=== PATIENT | female | born 1965 | race Caucasian/White ===

== ENCOUNTER 2020-08-14 11:00 | Outpatient (RCR) | payer OTHER, SELFPAY ==
--- NOTE | 2020-08-14 12:40 | MHC.PT.DC ---
[facility] [place] Office [place] Office [place] Office [address] [place] [address] Dr Montse Valencia [address] [phone] F: [phone] F: [phone] F: [phone] F: [phone] Physical Therapy Discharge Report Diagnosis: BACK PAIN AND KNEE PAIN Date of Surgery: Date of Evaluation: 06/19/20 Date of Discharge: 08/14/20 Treatments to Date: 11 Cancellations to Date: 0 No Shows to Date: 2 Discharge Status: Achieved Goals Independent with HEP Discharge Summary: 08/14/20 GOOD PERF EXS/STRETCHES, GIVEN INFO FOR [employer] (IS GOING TO TRY TO EX 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 HAS MET PT GOALS (REVIEWED 2 SESSIONS AGO) EVAL:Pt IS 54 YO F REFERRED TO PT FROM RHEUMATOLOGY WITH BACK PAIN AT MULTIPLE SITES. Pt REPORTS SHE DOES HAVE BACK PAIN, BUT KNEE PAIN IS WORSE. PRESENTS WITH LIMITED KNEE FLEX B, TIGHT HS R, DECREASED CORE AND LE STRENGTH. Pt WITH SOME PAT MALALIGNMENT AND SUBJECTIVE SXS OF PATELLOFEMORAL SYNDROME. SHOULD BENEFIT FROM PT TO ADDRESS KNEE ISSUES WITH TAPING, LE STRENGTHENING, AND ADDRESS LB SXS WITH ST WORK, CORE STENING.RENGTH Please sign and return to therapist. Thank you for your referral.
== END 2020-12-02 11:59 | disposition other institution (70) ==
LOC: HO.PT 11:00
PROVIDERS: Visit Provider Student in an Organized Health Care Education/Training Program
DX: M54.9 Dorsalgia, unspecified (principal); M25.569 Pain in unspecified knee
CPT/HCPCS: 97110

== ENCOUNTER → 2020-09-29 10:10 | Outpatient (BNVA) | payer OTHER, SELFPAY | PROVIDERS: PCP Internal Medicine; Referring Provider Internal Medicine; Visit Provider Student in an Organized Health Care Education/Training Program | DX: M35.01 Sjogren syndrome with keratoconjunctivitis (principal); R76.8 Other specified abnormal immunological findings in serum; M17.0 Bilateral primary osteoarthritis of knee | CPT/HCPCS: 99212 ==

== ENCOUNTER 2021-02-16 11:05 | Outpatient (REF) | payer OTHER, SELFPAY ==
[2021-02-16 12:13] LABS: Glucose Urine UA NEG (NEG); Leukocyte Esterase Urine NEG (NEG); Nitrite Urine NEG (NEG); Specific Gravity - Urine <= 1.005 (1.005-1.025); Urine Blood NEG (NEG); Urine Ketones NEG (NEG); Urine Protein NEG (NEG-TRACE)
[2021-02-16 12:15] LABS: Appearance Urine CLEAR; Color Urine STRAW
[2021-02-16 12:25] LABS: Bacteria Urine 1+ /LPF; RBC Urine 0 /HPF (0); Squamous Epithelial Cell Urine 1+ /LPF; WBC Urine 0-2 /HPF (0-4)
[2021-02-17 14:22] LABS: Anti DNA DS Antibody 1 IU/mL
[2021-02-17 15:11] LABS: Complement C3 139 mg/dL (83-193)
== END 2021-02-16 11:06 | disposition home or self-care (01) ==
LOC: HO.LAB 11:05
PROVIDERS: PCP Internal Medicine; Visit Provider Student in an Organized Health Care Education/Training Program
DX: M35.01 Sjogren syndrome with keratoconjunctivitis (principal); M62.830 Muscle spasm of back; M67.911 Unspecified disorder of synovium and tendon, right shoulder
CPT/HCPCS: 36415; 81001; 86160; 86225; 99212

== ENCOUNTER 2021-04-14 21:21 | Emergency (ER) | payer OTHER, SELFPAY ==
--- NOTE | ~2021-04-14 | XR_ITS ---
EXAMINATION: XR LUMBOSACRAL SPINE CLINICAL INFORMATION: Pain COMPARISON: None TECHNIQUE: Three views of the lumbosacral spine. FINDINGS: There is a mildly exaggerated lumbar lordosis. There is some mild disc space narrowing L1-L2 with some endplate changes. The disc spaces are otherwise well preserved. No fractures or bony destructive lesions seen. Surgical clips noted in the gallbladder fossa. Large amount of stool is present throughout the colon. XR/XR lumbar spine 2-3V IMPRESSION: Minimal degenerative changes in the lumbosacral spine as described above.
[2021-04-14 22:35] VITALS: BP 142/85; PULSE 80; RESP 16; TEMP 36.7; O2SAT 84; BMI 34.9
--- NOTE | 2021-04-14 22:49 | ED.BACK ---
HPI - Back Pain/Injury General Chief Complaint: Back Pain/Injury Stated Complaint: low back pain Time Seen by Provider: 04/14/21 22:49 Source: patient Mode of arrival: ambulatory Limitations: no limitations History of Present Illness HPI Narrative: lumbar back pain with radiation down to the left leg, denies injury MD elicited complaint: back pain Pertinent past history: prior back pain Onset (ago): day(s) (3) Timing: constant Severity: moderate Quality: burning and sharp Location: lumbar spine Radiation: left leg below the knee Exacerbating factors: sitting upright Relieving factors: none Associated symptoms: denies other symptoms Related Data Home Medications Medication Instructions Recorded Confirmed acetaminophen 650 mg 1,300 mg PO Q8H 09/29/20 tablet,extended release levothyroxine 175 mcg tablet 175 mcg PO DAILY 09/29/20 Previous Rx's Medication Instructions Recorded tizanidine 2 mg tablet 2 mg PO BEDTIME PRN #10 tab 02/16/21 diclofenac sodium 1 % topical gel 4 g TOPICAL DAILY PRN #100 g 02/25/21 cyclobenzaprine 10 mg PO TID #10 tab 04/14/21 naproxen [Naprosyn] 500 mg PO BID #20 tab 04/14/21 Allergies Allergy/AdvReac Type Severity Reaction Status Date / Time No Known Allergies Allergy Verified 02/16/21 11:12 Review of Systems Constitutional: Constitutional: Reports no additional constitutional complaints Eyes: Eyes: Reports no additional eye complaints ENT: Denies dizziness Cardiovascular: Cardiovascular: Reports no additional cardiovascular complaints Respiratory: Respiratory: Reports as per HPI Gastrointestinal: Gastrointestinal: Reports no additional gastrointestinal complaints Genitourinary: Genitourinary: Reports no additional female genitourinary complaints Musculoskeletal: Musculoskeletal: Reports no additional musculoskeletal complaints Integumentary/Breasts: Skin/Breast: Denies rash Neurologic: Reports system reviewed and no additional complaints, except as documented, Denies dizziness and Denies Sensory deficit (Neuro) Psychiatric: Psychiatric: Denies anxiety PMFSH Past Medical History Medical History JERRI positive Primary osteoarthritis of knees, bilateral Sjogrens syndrome Surgical History Hx of cholecystectomy Hx of hysterectomy Hx of tonsillectomy Hx of tubal ligation Family History Family History Mother Osteoarthritis Brother HTN (hypertension) Father Sepsis Social History Social History Alcohol intake: never Advance Directives: No Advance Directives Information Provided: Yes Patient : No Physical Exam Vital Signs: Vital Signs: Last Vital Signs Temp 98.0 F 04/14/21 22:35 Pulse 80 04/14/21 22:35 Resp 16 04/14/21 22:35 BP 142/85 H 04/14/21 22:35 Pulse Ox 84 L 04/14/21 22:35 Body Mass Index 34.9 Const: Other: patient in pain out of proportion to physical findings Nutritional Appearance: average body habitus Orientation/consciousness: oriented to person and patient oriented x3 Limitations: no limitations HENMT: Head: Yes normal to inspection Ears: external ears normal General nose exam: Normal external nose present Mouth: Normal oral and palatal mucosa present and oropharynx normal Throat: Yes posterior oropharynx normal Eyes: General: appearance normal, both eyes and all related structures Neck: Other: supple Neck: Yes normal visual inspection Chest: Chest palpation & inspection: normal inspection of the chest Resp: Auscultation: clear to auscultation bilaterally Cardio: Jugular venous distension: no JVD Rate: regular rate Rhythm: regular rhythm Heart sounds: S1 normal heart sound present and S2 normal heart sound present GI: Inspection: Yes normal to inspection Palpation (GI): Soft to palpation, nontender and No hepatosplenomegaly present Auscultation: normal bowel sounds Back/Spine/Pelvis: Other: bilateral SI joint tenderness with bilateral sciatica Skin: General skin exam: no rashes or lesions noted Neuro: General: oriented to person and patient oriented x3 Cranial nerves: Yes CN's II-XII intact bilaterally Motor exam (neuro): 5/5 motor strength present throughout Sensory Exam: No Sensory deficit (Neuro) Extrem: General: Yes normal to inspection Psych: Appearance: grossly normal Course Course Course Narrative: Patient with SI joint and sciatic pain, xray with degenerative disease. Will dc patient on NSAIDS and flexeril MDM - Back Pain/Injury Lab Data Labs: Lab Results 04/14/21 Range/Units 23:02 Urine Color YELLOW Urine Appearance CLEAR Urine pH 6.0 (5.0-8.0) Ur Specific [place] 1.020 (1.005-1.025) Urine Protein NEG (NEG-TRACE) MG/DL Urine Glucose (UA) NEG (NEG) MG/DL Urine Ketones NEG (NEG) MG/DL Urine Blood NEG (NEG) Urine Nitrite NEG (NEG) Ur Leukocyte Esterase NEG (NEG) Discharge Plan Discharge Clinical Impression: Lumbar radiculopathy Sciatica Qualifiers: Laterality: bilateral Qualified Code(s): M54.31 - Sciatica, right side Patient Disposition: Home, Self-Care Instructions: Sciatica (ED), Lumbar Radiculopathy (ED) Prescriptions: New cyclobenzaprine 10 mg tablet 10 mg PO TID Qty: 10 RF: 0 naproxen [Naprosyn] 500 mg tablet 500 mg PO BID Qty: 20 RF: 0 No Action diclofenac sodium [Voltaren] 1 % gel 4 g topical DAILY PRN (Reason: pain) Qty: 100 RF: 3 levothyroxine 175 mcg tablet 175 mcg PO DAILY RF: 0 acetaminophen [Tylenol Arthritis Pain] 650 mg tablet extended release 1,300 mg PO Q8H RF: 0 tizanidine 2 mg tablet 2 mg PO BEDTIME PRN (Reason: muscle spasticity) Qty: 10 RF: 0 Referrals: Leidy Weeks MD [Primary Care Provider] - 1 week
[2021-04-14 23:10] LABS: Glucose Urine UA NEG (NEG); Leukocyte Esterase Urine NEG (NEG); Nitrite Urine NEG (NEG); Urine Blood NEG (NEG); Urine Ketones NEG (NEG); Urine Protein NEG (NEG-TRACE)
[2021-04-14 23:12] LABS: Appearance Urine CLEAR; Color Urine YELLOW
[2021-04-14] MEDS: Ketorolac Tromethamine 60 MG/2 ML VIAL IM (23:55)
== END 2021-04-15 00:19 | disposition home or self-care (01) ==
PROVIDERS: Emergency Provider Emergency Medicine; PCP Internal Medicine
DX: M54.16 Radiculopathy, lumbar region (principal); M54.31 Sciatica, right side
CPT/HCPCS: 72100; 81003; 96372; 99284; J1885

== ENCOUNTER 2021-04-22 14:00 | Outpatient (RCR) | payer OTHER, SELFPAY ==
--- NOTE | 2021-03-26 15:03 | MHC.PT.EP ---
[facility] [place] Office [place] Office [place] Office [address] Montse Valencia [address] [phone] F: [phone] F: [phone] F: [phone] F: [phone] Physical Therapy Plan of Care Date of Evaluation: Date of Surgery: N/A Diagnosis: tendinopathy of the right rotator cuff Assessment: pt's signs and symptoms appear to be related to posture and poor compensatory strategies. It seems as though she is experiencing impingement syndrome but will monitor neurological symptoms and treat accordingly. pt presents to physical therapy with pain, decreased range of motion, decreased strength, impaired functional mobility, impaired postural awareness, and gait deviations. pt is a good candidate for skilled PT due to age, potential remediation of impairments, typical disease/condition progression and prognosis, comorbidities, and motivation. pt would benefit from tailored strengthening and stretching exercise program, functional training, postural re-training, neuromuscular re-education, modalities as needed for pain, equipment safety demonstration. Frequency and Duration: The patient will be seen 1x/wk for 5 wks Short Term Goals: pt will be I w/ HEP to promote self-management of condition. pt will demo proper scap setting prior to active shoulder elevation to reduce compensatory strategies and pain w/ functional activities. Steward/Stewardess Night Goals: pt will report <1/10 R shoulder pain w/ upper body dressing to promote return to PLOF. pt will report a statistically significant improvement in self-reported outcome measure, SPADI, to promote return to PLOF. Treatment Plan: Modalities to reduce pain, spasms and effusion. Manual therapy to restore motion and function. Therapeutic exercise to improve strength and flexibility. Neuromuscular re-education for posture and balance. Therapeutic activities to return to functional activities of daily living. Electronically signed by: Kayce Romero PT, DPT Please sign and return to therapist. Thank you for your referral.
--- NOTE | 2021-04-22 15:34 | MHC.PT.DC ---
[facility] [place] Office [place] Office [place] Office [address] Montse Valencia 140 [facility] [phone] F: [phone] F: [phone] F: [phone] F: [phone] Physical Therapy Discharge Report Diagnosis: tendinopathy of the right rotator cuff Date of Surgery: N/A Date of Evaluation: 03/26/21 Date of Discharge: 04/22/21 Treatments to Date: 2 Cancellations to Date: 2 No Shows to Date: 1 Discharge Status: Improved Function Independent with HEP Discharge Summary: The patient feels her shoulder is better and she can manage her symptoms with a stretching and strengthening program at home. She was taken through a cervical stretching, postural strengthening, and shoulder active assisted range of motion program with little to no increase in pain. She demonstrated improved periscapular recruitment with active elevation. She was given an updated HEP handout. She is discharged from this physical therapy plan of care at this time. Electronically signed by: Kayce Romero PT, DPT Please sign and return to therapist. Thank you for your referral.
== END 2021-04-22 15:35 | disposition other institution (70) ==
LOC: HO.PT 14:00
PROVIDERS: Visit Provider Student in an Organized Health Care Education/Training Program
DX: M67.911 Unspecified disorder of synovium and tendon, right shoulder (principal)
CPT/HCPCS: 97110; 97112; 97140; 97161

== ENCOUNTER → 2021-05-05 09:02 | Outpatient (BNVA) | payer OTHER, SELFPAY | PROVIDERS: PCP Internal Medicine; Visit Provider Student in an Organized Health Care Education/Training Program | DX: M35.01 Sjogren syndrome with keratoconjunctivitis (principal); M62.830 Muscle spasm of back; M67.911 Unspecified disorder of synovium and tendon, right shoulder; M17.0 Bilateral primary osteoarthritis of knee; R76.8 Other specified abnormal immunological findings in serum | CPT/HCPCS: 99212 ==

== ENCOUNTER 2021-05-25 10:00 | Outpatient (RCR) | payer OTHER, SELFPAY ==
--- NOTE | 2021-05-05 10:54 | MHC.PT.EP ---
[facility] [place] Office [place] Office [place] Office [address] Montse Valencia [address] [phone] F: [phone] F: [phone] F: [phone] F: [phone] Physical Therapy Plan of Care Date of Evaluation: Date of Surgery: N/A Diagnosis: muscle spasm of back Assessment: pt's signs and symptoms consistent w/ thoracolumbar paraspinal spasm. pt presents to physical therapy with pain, decreased range of motion, decreased strength, impaired functional mobility, impaired postural awareness, and gait deviations. pt is a good candidate for skilled PT due to age, potential remediation of impairments, typical disease/condition progression and prognosis, comorbidities, and motivation. pt would benefit from tailored strengthening and stretching exercise program, functional training, gait training, postural re-training, neuromuscular re-education, modalities as needed for pain, equipment safety demonstration. Frequency and Duration: The patient will be seen 2x/wk for 4 wks Short Term Goals: pt will be I w/ HEP to promote self-management of condition. pt will demo proper sitting posture w/ lumbar roll to promote neutral spine. 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 pt will improve lumbar flexion by 50% to improve ability to don and doff socks/shoes. Treatment Plan: Modalities to reduce pain, spasms and effusion. Manual therapy to restore motion and function. Therapeutic exercise to improve strength and flexibility. Neuromuscular re-education for posture and balance. Therapeutic activities to return to functional activities of daily living. Electronically signed by: Kayce Romero PT, DPT Please sign and return to therapist. Thank you for your referral.
[2021-05-05 12:06] LABS: MANUAL DIFF FLAG NO
[2021-05-05 12:14] LABS: Basophils Percent Auto 0.3 % (0-2); Eosinophils Absolute Auto 0.1 X10*3/uL (0.0-0.4); Eosinophils Percent Auto 2.2 % (0-4); Hematocrit 42.1 % (37-47); Hemoglobin 13.9 g/dl (12.0-16.0); Imm Gran Abs Auto 0.02 X10*3/uL (0.00-0.03); Imm Gran Pct Auto 0.3 % (0.0-0.4); Lymphocytes Absolute Auto 1.5 X10*3/uL (1.2-4.9); Lymphocytes Percent Auto 26.1 % (20-40); Mean Corpuscular Hemoglobin 29.4 pg (27.0-33.0); Mean Corpuscular Volume 89.2 fL (80-98); Mean Platelet Volume 11.9 fL (9.4-12.3); Monocytes Absolute Auto 0.6 X10*3/uL (0.1-1.2); Monocytes Percent Auto 9.9 % (2-11); Neutrophils Absolute Auto 3.6 X10*3/uL (2.0-8.3); Neutrophils Percent Auto 61.2 % (45-73); Platelet Count 326 X10*3/uL (160-400); Red Blood Count 4.72 X10*6/uL (4.20-5.50); Red Cell Distribution Width 12.6 % (11.0-16.0); White Blood Count 5.9 X10*3/uL (4.8-10.8)
[2021-05-05 13:03] LABS: Alanine Aminotransferase 23 U/L (0-31); Albumin Level 4.3 g/dL (3.5-5.0); Alkaline Phosphatase 94 U/L (39-117); Anion Gap 11 (12-20); Aspartate Amino Transferase 19 U/L (5-31); Bilirubin Total 0.4 mg/dL (0.0-1.0); Blood Urea Nitrogen 9 mg/dL (9-16); C Reactive Protein 1.06 mg/dL (< or = 0.50); Calcium 10.1 mg/dL (8.4-10.2); Carbon Dioxide 29 mmol/L (22-29); Chloride 105 mmol/L (96-108); Estimated Glomerular Filt Rate > 60; Glucose Random 80 mg/dL (60-115); Potassium 4.6 mmol/L (3.3-5.1); Sodium 140 mmol/L (135-145); Total Protein 7.2 g/dL (6.5-8.0)
[2021-05-06 12:46] LABS: Prot Elec - Albumin 4.2 g/dL (3.8-4.8); Prot Elec - Alpha1 0.3 g/dL (0.2-0.3); Prot Elec - Alpha2 0.8 g/dL (0.5-0.9); Prot Elec - Beta 1 0.5 g/dL (0.4-0.6); Prot Elec - Beta 2 0.3 g/dL (0.2-0.5)
[2021-05-06 16:52] LABS: IgA 227 mg/dL (47-310); IgG 1151 mg/dL (600-1640); IgM 168 mg/dL (50-300)
[2021-05-07 14:51] LABS: Cyclic Citrullinated Peptide <16 UNITS
--- NOTE | 2021-05-25 13:51 | MHC.PT.DC ---
[facility] [place] Office [place] Office [place] Office [address] Montse Valencia 140 [facility] [phone] F: [phone] F: [phone] F: [phone] F: [phone] Physical Therapy Discharge Report Diagnosis: muscle spasm of back Date of Surgery: N/A Date of Evaluation: 05/05/21 Date of Discharge: 05/25/21 Treatments to Date: 3 Cancellations to Date: 0 No Shows to Date: 2 Discharge Status: Improved Function Independent with HEP Patient Elected to Stop Discharge Summary: The patient reported she has been doing her exercises at home and her back has been feeling very good. She has been having little to no pain in her back. She would like today to be her last visit. She has been independent with her home exercise program which has been helping significantly. She was advised on continuing with her home exercise program and a gentle progressive walking program to maintain her gains and promote functional strength and endurance. She is discharged from this physical therapy plan of care per her request. Electronically signed by: Kayce Romero PT, DPT Please sign and return to therapist. Thank you for your referral.
== END 2021-05-25 13:52 | disposition home or self-care (01) ==
LOC: HO.PT 10:00
PROVIDERS: Visit Provider Student in an Organized Health Care Education/Training Program
DX: M62.830 Muscle spasm of back (principal)
CPT/HCPCS: 36415; 80053; 82784; 84155; 84165; 85025; 86140; 86200; 86334; 97110; 97112; 97140; 97150; 97161; 97530

== ENCOUNTER 2021-10-18 14:06 | Outpatient (REF) | payer OTHER, SELFPAY ==
[2021-10-18 15:15] LABS: COVID-19 Test Negative (Negative); IDNOW Serial# 16C4AD1C
== END 2021-10-18 14:07 | disposition home or self-care (01) ==
LOC: HO.LAB 14:06
PROVIDERS: Visit Provider Internal Medicine
DX: Z20.822 Contact with and (suspected) exposure to COVID-19 (principal)
CPT/HCPCS: 36415; 87635; C9803

== ENCOUNTER 2021-10-25 14:01 | Outpatient (REF) | payer OTHER, SELFPAY ==
[2021-10-25 16:12] LABS: COVID-19 Test Negative (Negative)
== END 2021-10-25 14:02 | disposition home or self-care (01) ==
LOC: HO.LAB 14:01
PROVIDERS: Visit Provider Internal Medicine
DX: Z20.822 Contact with and (suspected) exposure to COVID-19 (principal)
CPT/HCPCS: 36415; 87635; C9803

== ENCOUNTER 2021-11-06 10:48 | Emergency (ER) | payer OTHER, SELFPAY ==
[2021-11-06 11:12] VITALS: PULSE 76; RESP 18; TEMP 36.8; O2SAT 98; BMI 35.0
--- NOTE | 2021-11-06 11:55 | ED.BACK ---
HPI - Back Pain/Injury General Chief Complaint: Back Pain/Injury Stated Complaint: severe back pain Time Seen by Provider: 11/06/21 11:55 History of Present Illness HPI Narrative: Patient complains of back pain after lifting a child at home on the right mid back with no radiation, no numbness weakness or tingling no changes to bowel or bladder no other injury Related Data Home Medications Medication Instructions Recorded Confirmed acetaminophen 650 mg 1,300 mg PO Q8H 09/29/20 05/05/21 tablet,extended release (Tylenol Arthritis Pain) levothyroxine 175 mcg tablet 175 mcg PO DAILY 09/29/20 05/05/21 Previous Rx's Medication Instructions Recorded tizanidine 2 mg tablet 2 mg PO BEDTIME PRN #10 tab 02/16/21 diclofenac sodium 1 % topical gel 4 g TOPICAL DAILY PRN #100 g 02/25/21 (Voltaren) cyclobenzaprine 10 mg tablet 10 mg PO TID #10 tab 04/14/21 naproxen 500 mg tablet (Naprosyn) 500 mg PO BID #20 tab 04/14/21 acetaminophen 500 mg tablet 1,000 mg PO QID PRN #30 tab 11/06/21 cyclobenzaprine 5 mg tablet 5 mg PO TID PRN #14 tab 11/06/21 ibuprofen 600 mg tablet 600 mg PO Q6H PRN #20 tab 11/06/21 lidocaine 5 % topical patch 1 patch TOPICAL DAILY #15 ea 11/06/21 Allergies Allergy/AdvReac Type Severity Reaction Status Date / Time No Known Allergies Allergy Verified 11/06/21 11:11 Review of Systems Review of Systems: Positive for back pain Negative no fever no chills no dizziness no weakness no headache no neck pain no chest pain no shortness of breath no abdominal pain no nausea or vomiting no dysuria no incontinence no changes to bowel or bladder no weakness no numbness no tingling no radiation of pain Yes all other systems are reviewed and are negative PMFSH Past Medical History Source: nursing notes reviewed Medical History JERRI positive Primary osteoarthritis of knees, bilateral Sjogrens syndrome Surgical History Hx of cholecystectomy Hx of hysterectomy Hx of tonsillectomy Hx of tubal ligation Family History Family History Mother Osteoarthritis Brother HTN (hypertension) Father Sepsis Social History Social History (Updated 05/05/21 @ 09:13 by Lester Flynn LPN) Alcohol intake: never Patient Tobacco Use Status: Never used Tobacco e-Cigarette/Vaping Use: Never Used Use of substances other than those prescribed or required for medical reasons: No Advance Directives: No Advance Directives Information Provided: Yes Physical Exam Vital Signs: Vital Signs: Last Vital Signs Temp 98.3 F 11/06/21 11:12 Pulse 76 11/06/21 11:12 Resp 18 11/06/21 11:12 Pulse Ox 98 11/06/21 11:12 BMI result Body Mass Index 35.0 General appearance no acute distress Head normocephalic atraumatic Neck is supple Respiratory no distress Abdomen soft nontender The back had lower lumbar paraspinal tenderness no focal bony tenderness no CVA tenderness, pain easily reproduced with movement, skin was normal Extremities full range of motion x4 Neuro no focal motor or sensory deficits Course Course Course Narrative: Well-appearing patient without neurologic deficit, no changes to bowel or bladder is treated with analgesics and muscle relaxer and will follow with primary doctor Discharge Plan Discharge Clinical Impression: Low back strain Patient Disposition: Home, Self-Care Additional Instructions: You likely strained muscles in her back This usually resolves on its own after several days You could use pain medicine and muscle relaxers if helpful Follow with her doctor Return any time if worse Prescriptions: New acetaminophen 500 mg tablet 1,000 mg PO QID PRN (Reason: pain) Qty: 30 RF: 0 cyclobenzaprine 5 mg tablet 5 mg PO TID PRN (Reason: muscle spasm) Qty: 14 RF: 0 lidocaine 5 % adhesive patch,medicated 1 patch topical DAILY Qty: 15 RF: 0 ibuprofen 600 mg tablet 600 mg PO Q6H PRN (Reason: pain) Qty: 20 RF: 0 No Action diclofenac sodium [Voltaren] 1 % gel 4 g topical DAILY PRN (Reason: pain) Qty: 100 RF: 3 cyclobenzaprine 10 mg tablet 10 mg PO TID Qty: 10 RF: 0 naproxen [Naprosyn] 500 mg tablet 500 mg PO BID Qty: 20 RF: 0 levothyroxine 175 mcg tablet 175 mcg PO DAILY RF: 0 acetaminophen [Tylenol Arthritis Pain] 650 mg tablet extended release 1,300 mg PO Q8H RF: 0 tizanidine 2 mg tablet 2 mg PO BEDTIME PRN (Reason: muscle spasticity) Qty: 10 RF: 0 Interventions: ED Discharge Assessment Last Done: 11/06/21 12:07 Discharge Date/Time: 11/06/21 12:08
== END 2021-11-06 12:08 | disposition home or self-care (01) ==
PROVIDERS: Emergency Provider Emergency Medicine; PCP Internal Medicine
DX: M54.50 Low back pain, unspecified (principal); Z79.899 Other long term (current) drug therapy
CPT/HCPCS: 99283; 99284

== ENCOUNTER 2021-11-09 11:51 | Outpatient (REF) | payer OTHER, SELFPAY ==
[2021-11-09 15:14] LABS: Binax Internal Control QC Valid; Binax Lot number: 9864; Binax Now Covid-19 Ag Negative (Negative)
== END 2021-11-09 11:52 | disposition home or self-care (01) ==
LOC: HO.LAB 11:51
PROVIDERS: Visit Provider Internal Medicine
DX: Z20.822 Contact with and (suspected) exposure to COVID-19 (principal)
CPT/HCPCS: 36415

== ENCOUNTER → 2022-01-20 10:54 | Outpatient (BNVA) | payer SELFPAY | PROVIDERS: PCP Internal Medicine; Visit Provider Internal Medicine | DX: Z02.79 Encounter for issue of other medical certificate (principal) ==

== ENCOUNTER 2022-06-02 10:33 | Emergency (ER) | payer OTHER, SELFPAY ==
--- NOTE | ~2022-06-02 | XR_ITS ---
EXAMINATION: XR CHEST CLINICAL INFORMATION: Chest pain with cough COMPARISON: November 27, 2016 TECHNIQUE: Frontal view of the chest was obtained. FINDINGS: No significant abnormality is noted involving the heart, lungs, mediastinum, bony thorax or soft tissues. XR/XR chest 1V IMPRESSION: No acute disease.
[2022-06-02 10:39] VITALS: BP 138/79; PULSE 71; RESP 16; TEMP 36.7; O2SAT 99; BMI 35.2
--- NOTE | 2022-06-02 10:44 | ECG_ITS ---
Test Reason : CP Blood Pressure : / mmHG Vent. Rate : 071 BPM Atrial Rate : 071 BPM P-R Int : 162 ms QRS Dur : 076 ms QT Int : 366 ms P-R-T Axes : 048 -01 019 degrees QTc Int : 397 ms Normal sinus rhythm Low voltage QRS Cannot rule out Anterior infarct , age undetermined Abnormal ECG No significant changes when compared with the previous EKG of 22 aug 2013 Referred By: Generic ED Physician Electronically Signed By:SHARA MOISE
[2022-06-02 11:32] VITALS: BP 139/78; PULSE 75; RESP 18; TEMP 36.7; O2SAT 100
--- NOTE | 2022-06-02 11:43 | ED.CHESTPAIN ---
HPI - Chest Pain General Chief Complaint: Chest Pain Stated Complaint: chest pain Time Seen by Provider: 06/02/22 11:29 Source: patient Mode of arrival: ambulatory History of Present Illness HPI narrative: 56-year-old female with a past medical history of JERRI positive, osteoarthritis, Sjogren syndrome, presenting to the ED complaining of intermittent chest pain since last night worse with coughing, also with productive cough with headache since this morning. Reports history of migraines, this headache is similar to prior migraines, not maximal in onset. Denies fever, ear pain, SOB, abdominal pain, nausea/vomiting, pedal edema, sick contacts, recent travel MD complaint: chest pain Related Data Home Medications Medication Instructions Recorded Confirmed acetaminophen 650 mg 1,300 mg PO Q8H 09/29/20 05/05/21 tablet,extended release (Tylenol Arthritis Pain) levothyroxine 175 mcg tablet 175 mcg PO DAILY 09/29/20 05/05/21 Previous Rx's Medication Instructions Recorded tizanidine 2 mg tablet 2 mg PO BEDTIME PRN muscle 02/16/21 spasticity #10 tabs diclofenac sodium 1 % topical gel 4 g topical DAILY PRN pain #100 02/25/21 (Voltaren) grams cyclobenzaprine 10 mg tablet 10 mg PO TID #10 tabs 04/14/21 naproxen 500 mg tablet (Naprosyn) 500 mg PO BID #20 tabs 04/14/21 acetaminophen 500 mg tablet 1,000 mg PO QID PRN pain #30 tabs 11/06/21 cyclobenzaprine 5 mg tablet 5 mg PO TID PRN muscle spasm #14 11/06/21 tabs ibuprofen 600 mg tablet 600 mg PO Q6H PRN pain #20 tabs 11/06/21 lidocaine 5 % topical patch 1 patch topical DAILY Back pain 11/06/21 #15 ea benzonatate 100 mg capsule 100 mg PO TID PRN cough #14 caps 06/02/22 fluticasone propionate 50 2 spray intranasal DAILY #16 grams 06/02/22 mcg/actuation nasal spray,suspension (Flonase Allergy Relief) Allergies Allergy/AdvReac Type Severity Reaction Status Date / Time No Known Allergies Allergy Verified 06/02/22 10:39 Review of Systems Review of Systems: Constitutional: No Fever, No Chills, No Fatigue, No Malaise ENT/Mouth: No Hearing loss, No Ear Pain, No Nasal Congestion, No Sinus Pain, No Hoarseness, + sore throat, No Rhinorrhea, No Swallowing Difficulty Eyes: No Eye Pain, No Swelling, No Redness Cardiovascular: + Chest Pain, No SOB, No Dyspnea on Exertion, No Orthopnea, No Edema, No Palpitations Respiratory: + Cough, + Sputum, No Wheezing, No Smoke Exposure, No Dyspnea Gastrointestinal: No Nausea, No Vomiting, No Diarrhea, No Constipation, No Abdominal pain Genitourinary: No irregular bleeding, No Dysuria, No Urinary Frequency, No Hematuria, No Flank Pain, No Urinary Flow Changes, No Hesitancy Musculoskeletal: No joint pain, No Myalgias, No Joint Swelling Skin: No Skin Lesions, No rash Neuro: No Weakness, No Loss of Consciousness, No Dizziness, No Headache Yes all other systems are reviewed and are negative Constitutional: Constitutional: Reports as per [facility] Past Medical History Attestation statement: The following information was validated with the patient. Medical History JERRI positive Primary osteoarthritis of knees, bilateral Sjogrens syndrome Surgical History Hx of cholecystectomy Hx of hysterectomy Hx of tonsillectomy Hx of tubal ligation Family History Family History Mother Osteoarthritis Brother HTN (hypertension) Father Sepsis Social History Social History (Updated 05/05/21 @ 09:13 by Lester Flynn LPN) Alcohol intake: never Patient Tobacco Use Status: Never used Tobacco e-Cigarette/Vaping Use: Never Used Use of substances other than those prescribed or required for medical reasons: No Advance Directives: No Advance Directives Information Provided: No Physical Exam Vital Signs: Vital Signs: Last Vital Signs Temp 98.1 F 06/02/22 11:32 Pulse 75 06/02/22 11:32 Resp 18 06/02/22 11:32 BP 139/78 06/02/22 11:32 Pulse Ox 100 06/02/22 11:32 O2 Del Method 06/02/22 11:32 BMI result Body Mass Index 35.2 Const: General: cooperative, healthy appearing and no acute distress Orientation/consciousness: patient oriented x3 Limitations: no limitations HEENT: Head: Yes normal to inspection and Yes atraumatic Ears: hearing grossly normal bilaterally General nose exam: Normal external nose present Face and sinus: Yes normal facial exam Throat: Yes posterior oropharynx normal, Yes tonsils normal, Yes uvula midline and No peritonsillar mass Eyes: General: appearance normal, both eyes and all related structures EOM: EOMs intact bilaterally Neck: Neck: Yes normal visual inspection and Yes no meningeal signs Chest: Other: + substernal chest pain reproducible on exam Chest palpation & inspection: no crepitus Resp: Effort & Inspection: normal respiratory effort and no respiratory distress Auscultation: clear to auscultation bilaterally, no rales, no rhonchi and no wheezes Cardio: Rate: regular rate Heart sounds: S1 normal heart sound present and S2 normal heart sound present GI: Inspection: Yes normal to inspection Palpation (GI): Soft to palpation, nontender, no guarding and not rigid : General: Yes no CVA tenderness Back/Spine/Pelvis: Back: no CVA tenderness Skin: Rashes: no rashes Wounds: no wounds Neuro: General: patient oriented x3, tone normal and no meningeal signs Gait exam (Neuro): Normal gait present Extrem: General: Yes normal to inspection, Yes no pedal edema and Yes no calf tenderness Course Course Course Narrative: -1219-- no leukocytosis. Labs otherwise unremarkable. Troponin negative XR chest 1V IMPRESSION: No acute disease. -1230-- COVID-19 negative Results discussed with patient including worrisome signs and symptoms and strict return precautions, and when to return to the emergency department. They verbalized understanding and feel safe for discharge at this time. MDM - Chest Pain MDM Narrative Medical decision making narrative: 56-year-old female with a past medical history of JERRI positive, osteoarthritis, Sjogren syndrome, presenting to the ED complaining of intermittent chest pain since last night worse with coughing, also with productive cough with headache since this morning. on exam vital signs stable, NAD, nontoxic appearing, lungs CTA, CP reproducible on exam, no pedal edema/calf tenderness. Concern for viral illness vs pneumonia vs costochondritis. Lower concern for ACS/PE. Concern for migraine headache, low suspicion for SAH or meningitis/encephalitis plan: EKG, labs, CXR, COVID-19 testing, symptomatic treatment Differential Diagnosis Differential diagnosis: Likely atypical chest pain and chest pain Medical Records Data Attestation: I reviewed the patient's medical records. Lab Data Attestation: I reviewed the patient's lab results. Result diagrams: 06/02/22 11:43 06/02/22 11:43 Labs: Lab Results 06/02/22 06/02/22 06/02/22 Range/Units 11:43 11:43 11:43 WBC 5.0 (4.8-10.8) X10*3/uL RBC 4.78 (4.20-5.50) X10*6/uL Hgb 13.9 (12.0-16.0) g/dl Hct 42.3 (37.0-47.0) % MCV 88.5 (80.0-98.0) fL MCH 29.1 (27.0-33.0) pg MCHC 32.9 (31.0-35.0) g/dl RDW 13.0 (11.0-16.0) % Plt Count 286 (160-400) X10*3/uL MPV 11.4 (9.4-12.3) fL Immature Gran % (Auto) 0.4 (0.0-0.4) % Neut % (Auto) 64.7 (45-73) % Lymph % (Auto) 20.6 (20-40) % [place]oval % (Auto) 11.9 H (2-11) % Eos % (Auto) 2.0 (0-4) % Baso % (Auto) 0.4 (0-2) % Lymph # (Auto) 1.0 L (1.2-4.9) X10*3/uL [place] # (Auto) 0.6 (0.1-1.2) X10*3/uL Eos # (Auto) 0.1 (0.0-0.4) X10*3/uL Baso # (Auto) 0.0 (0.0-0.2) X10*3/uL Abs Immat Gran (auto) 0.02 (0.00-0.03) X10*3/uL Absolute Neuts (auto) 3.3 (2.0-8.3) x10*3/uL Absolute Nucleated RBC 0.000 (0.0-0.012) X10*3/uL Nucleated RBC % (auto) 0.0 (0.0-0.2) /100WBC Sodium 141 (135-145) mmol/L Potassium 4.2 (3.3-5.1) mmol/L Chloride 107 (96-108) mmol/L Carbon Dioxide 29 (22-29) mmol/L Anion Gap 9 L (12-20) BUN 8 L (9-16) mg/dL Creatinine 0.70 (0.5-1.4) mg/dL Estim Creat Clear Calc 112.8 Estimated GFR > 60 Random Glucose 81 (60-115) mg/dL Calcium 9.6 (8.4-10.2) mg/dL Troponin I High Sens < 3.5 (<3.5-17.0) ng/L COVID-19 (JACOBO) (Negative) COVID-19 Clin Com 06/02/22 Range/Units 11:55 WBC (4.8-10.8) X10*3/uL RBC (4.20-5.50) X10*6/uL Hgb (12.0-16.0) g/dl Hct (37.0-47.0) % MCV (80.0-98.0) fL MCH (27.0-33.0) pg MCHC (31.0-35.0) g/dl RDW (11.0-16.0) % Plt Count (160-400) X10*3/uL MPV (9.4-12.3) fL Immature Gran % (Auto) (0.0-0.4) % Neut % (Auto) (45-73) % Lymph % (Auto) (20-40) % Sandoval % (Auto) (2-11) % Eos % (Auto) (0-4) % Baso % (Auto) (0-2) % Lymph # (Auto) (1.2-4.9) X10*3/uL [place] # (Auto) (0.1-1.2) X10*3/uL Eos # (Auto) (0.0-0.4) X10*3/uL Baso # (Auto) (0.0-0.2) X10*3/uL Abs Immat Gran (auto) (0.00-0.03) X10*3/uL Absolute Neuts (auto) (2.0-8.3) x10*3/uL Absolute Nucleated RBC (0.0-0.012) X10*3/uL Nucleated RBC % (auto) (0.0-0.2) /100WBC Sodium (135-145) mmol/L Potassium (3.3-5.1) mmol/L Chloride (96-108) mmol/L Carbon Dioxide (22-29) mmol/L Anion Gap (12-20) BUN (9-16) mg/dL Creatinine (0.5-1.4) mg/dL Estim Creat Clear Calc Estimated GFR Random Glucose (60-115) mg/dL Calcium (8.4-10.2) mg/dL Troponin I High Sens (<3.5-17.0) ng/L COVID-19 (JACOBO) Negative (Negative) COVID-19 Clin Com See Note ECG Data ECG #1: Attestation: I personally reviewed and interpreted this ECG as follows: ECG interpretation date: 06/02/22 ECG interpretation time: 11:37 Interpretation: EKG normal sinus rhythm at a rate of 71. Peer interval 162. QTC 397. No STEMI. Discharge Plan Discharge Clinical Impression: Acute viral syndrome Patient Disposition: Home, Self-Care Additional Instructions: your blood work was reassuring today in the emergency department. Her chest x-ray is unremarkable. Your likely having a viral illness. Tessalon pealrs are for cough, take as needed. In addition Flonase is a nasal decongestion. Rest. Stay hydrated follow-up with her doctor. If symptoms persist or worsen return to the emergency department Prescriptions: New benzonatate 100 mg capsule 100 mg PO TID PRN (Reason: cough) Qty: 14 0RF fluticasone propionate [Flonase Allergy Relief] 50 mcg/actuation spray,suspension 2 spray intranasal DAILY Qty: 16 0RF Rx Instructions: administer into each nostril No Action diclofenac sodium [Voltaren] 1 % gel 4 g topical DAILY PRN (Reason: pain) Qty: 100 3RF Rx Instructions: apply to single knee, ankle, foot; for foot includes sole/toes/top of foot cyclobenzaprine 10 mg tablet 10 mg PO TID Qty: 10 0RF naproxen [Naprosyn] 500 mg tablet 500 mg PO BID Qty: 20 0RF acetaminophen 500 mg tablet 1,000 mg PO QID PRN (Reason: pain) Qty: 30 0RF cyclobenzaprine 5 mg tablet 5 mg PO TID PRN (Reason: muscle spasm) Qty: 14 0RF Rx Instructions: This medication may cause drowsiness so no driving for 6 hours after taking lidocaine 5 % adhesive patch,medicated 1 patch topical DAILY Qty: 15 0RF Rx Instructions: leave on most painful area for up to 12 hrs ibuprofen 600 mg tablet 600 mg PO Q6H PRN (Reason: pain) Qty: 20 0RF levothyroxine 175 mcg tablet 175 mcg PO DAILY acetaminophen [Tylenol Arthritis Pain] 650 mg tablet extended release 1,300 mg PO Q8H tizanidine 2 mg tablet 2 mg PO BEDTIME PRN (Reason: muscle spasticity) Qty: 10 0RF Referrals: Leidy Weeks MD [Primary Care Provider] - 3 days Stand Alone Forms: Work/School Release
[2022-06-02 11:48] LABS: MANUAL DIFF FLAG NO
[2022-06-02 11:50] LABS: Basophils Percent Auto 0.4 % (0-2); Eosinophils Absolute Auto 0.1 X10*3/uL (0.0-0.4); Hematocrit 42.3 % (37.0-47.0); Hemoglobin 13.9 g/dl (12.0-16.0); Imm Gran Abs Auto 0.02 X10*3/uL (0.00-0.03); Imm Gran Pct Auto 0.4 % (0.0-0.4); Lymphocytes Percent Auto 20.6 % (20-40); Mean Corpuscular HGB Conc 32.9 g/dl (31.0-35.0); Mean Corpuscular Hemoglobin 29.1 pg (27.0-33.0); Mean Corpuscular Volume 88.5 fL (80.0-98.0); Mean Platelet Volume 11.4 fL (9.4-12.3); Monocytes Absolute Auto 0.6 X10*3/uL (0.1-1.2); Monocytes Percent Auto 11.9 % (2-11); Neutrophils Absolute Auto 3.3 x10*3/uL (2.0-8.3); Neutrophils Percent Auto 64.7 % (45-73); Platelet Count 286 X10*3/uL (160-400); Red Blood Count 4.78 X10*6/uL (4.20-5.50)
[2022-06-02] MEDS: Ibuprofen 600 MG TABLET PO (11:52)
[2022-06-02 12:08] LABS: Anion Gap 9 (12-20); Blood Urea Nitrogen 8 mg/dL (9-16); Calcium 9.6 mg/dL (8.4-10.2); Carbon Dioxide 29 mmol/L (22-29); Chloride 107 mmol/L (96-108); Creatinine Clr Calc Pharmacy 112.8; Estimated Glomerular Filt Rate > 60; Glucose Random 81 mg/dL (60-115); Potassium 4.2 mmol/L (3.3-5.1); Sodium 141 mmol/L (135-145)
[2022-06-02 12:09] LABS: Troponin-I High Sensitivity < 3.5 ng/L (<3.5-17.0)
[2022-06-02 12:25] LABS: COVID-19 Test Negative (Negative)
[2022-06-02 12:51] VITALS: BP 144/81; PULSE 70; RESP 12; TEMP 36.6; O2SAT 98
== END 2022-06-02 12:58 | disposition home or self-care (01) ==
PROVIDERS: Physician Assistant; Emergency Provider Student in an Organized Health Care Education/Training Program; PCP Internal Medicine
DX: B34.9 Viral infection, unspecified (principal); R07.89 Other chest pain; R50.9 Fever, unspecified; Z79.899 Other long term (current) drug therapy; Z20.822 Contact with and (suspected) exposure to COVID-19
CPT/HCPCS: 36415; 71045; 80048; 84484; 85025; 87635; 93005; 99283; 99285

== ENCOUNTER 2023-01-02 14:39 | Emergency (ER) | payer OTHER, SELFPAY | END 2023-01-02 17:09 | disposition left against medical advice (07) | LOC: HO.ED 16:41 | PROVIDERS: Emergency Provider Emergency Medicine | DX: R20.0 Anesthesia of skin (principal) ==

== ENCOUNTER 2023-06-28 08:40 | Emergency (ER) | payer OTHER, SELFPAY ==
--- NOTE | ~2023-06-28 | XR_ITS ---
EXAMINATION: XR CHEST CLINICAL INFORMATION: Chest wall pain, cough, shortness of breath COMPARISON: 06/02/2022 TECHNIQUE: 2 views of the chest were obtained. FINDINGS: No significant abnormality is noted involving the heart, lungs, mediastinum, bony thorax or soft tissues. XR/XR chest 2V IMPRESSION: Unremarkable examination with no interval change.
--- NOTE | 2023-06-28 08:45 | ECG_ITS ---
Test Reason : cp Blood Pressure : / mmHG Vent. Rate : 081 BPM Atrial Rate : 081 BPM P-R Int : 164 ms QRS Dur : 076 ms QT Int : 362 ms P-R-T Axes : 042 -03 018 degrees QTc Int : 420 ms Normal sinus rhythm Low voltage QRS Borderline ECG When compared with ECG of 02-JUN-2022 11:37, No significant change was found Referred By: Generic ED Physician Electronically Signed By:FITZ VO
[2023-06-28 08:54] VITALS: BP 121/75; PULSE 79; RESP 19; TEMP 36.6; O2SAT 98; BMI 36.6
--- NOTE | 2023-06-28 09:33 | ED_ITS ---
HPI - General Adult General Chief complaint: Upper Respiratory Symptoms Stated complaint: chest pain with cough, headache Time Seen by Provider: 06/28/23 09:11 Source: patient Mode of arrival: ambulatory Limitations: no limitations History of Present Illness HPI narrative: 57 year old women w/ no significant pmhx presents to the ED today w/ complaints of cough, LEON, and chest tightness. She states it has been going on for approx. 6 days, [facility] where she received amoxicillin for an infection . She states she is coughing up a green mucus, and is having sinus pressure, abdominal pain, nausea, feels as if someone is squeezing her lungs, and says since starting the amoxicillin she started with burning w/ urination. She denies any improvement with the antibiotic. She denies, fever, chills, vomiting, diarrhea, constipation, blood in her urine, runny nose, ear pain, and sore throat. MD complaint: Multiple complaints Onset (ago): day(s) (6) Location: head, face, chest and abdomen Radiation: non-radiation Severity: moderate Quality: aching Pain Consistency: constant Relieving factors: none Associated symptoms: cough, fever/chills, headaches, loss of appetite and malaise Treatments prior to arrival: other (antibiotics) Related Data Home Medications Medication Instructions Recorded Confirmed levothyroxine 175 mcg tablet 175 mcg PO DAILY 09/29/20 05/05/21 loratadine 10 mg tablet 10 mg PO DAILY 06/28/23 omeprazole 40 mg capsule,delayed 40 mg PO DAILY 06/28/23 release Previous Rx's Medication Instructions Recorded lidocaine 5 % topical patch 1 patch topical DAILY Back pain 11/06/21 #15 ea fluticasone propionate 50 2 spray intranasal DAILY #16 grams 06/02/22 mcg/actuation nasal spray,suspension (Flonase Allergy Relief) benzonatate 100 mg capsule 100 mg PO TID #30 caps 06/28/23 ibuprofen 600 mg tablet 600 mg PO Q8H PRN fever or pain 06/28/23 #14 tabs nystatin 100,000 unit/gram topical 1 appl topical TID #30 grams 06/28/23 ointment Allergies Allergy/AdvReac Type Severity Reaction Status Date / Time No Known Allergies Allergy Verified 06/28/23 08:54 Review of Systems Review of Systems: Yes all other systems are reviewed and are negative [facility] Past Medical History Medical History JERRI positive Primary osteoarthritis of knees, bilateral Sjogrens syndrome Surgical History Hx of cholecystectomy Hx of hysterectomy Hx of tonsillectomy Hx of tubal ligation Family History Family History Mother Osteoarthritis Brother HTN (hypertension) Father Sepsis Social History Social History (Updated 05/05/21 @ 09:13 by Lester Flynn LPN) Alcohol intake: never Patient Tobacco Use Status: Never used Tobacco e-Cigarette/Vaping Use: Never Used Advance Directives: No Advance Directives Information Provided: No Physical Exam ED Vital Signs: Vital Signs - 24 hr 06/28/23 08:54 Temperature 98 F Pulse Rate 79 Respiratory Rate 19 Blood Pressure 121/75 Pulse Oximetry 98 Oxygen Delivery Method Room Air BMI result Body Mass Index 36.6 Appearance: Alert. Oriented X3. No acute distress. Head: normocephalic, atraumatic. Eyes: Pupils equal, round and reactive to light. ENT: (+) tenderness to frontal & maxillary sinus. Pharynx normal. No tonsillar swelling or exudate. Neck: Normal inspection. Neck supple. CVS: Normal heart rate and rhythm. Pulses normal. Respiratory: No respiratory distress. Breath sounds normal. Abdomen: (+) epigastric & suprapubic tenderness to palpation. Soft. No guarding, or rigidity Skin: Skin warm and dry. Normal skin color. Normal skin turgor. No rashes. Extremities: No lower extremity edema. No joint swelling. Neuro/psych: Oriented X 3. No motor deficit. Normal speech and cognition. Medical Decision Making Medical Decision Making MDM Narrative: 57 year old women w/ no significant pmhx presents to the ED today w/ complaints of cough, LEON, and chest tightness. On exam VSS, NAD, and no red flag symptoms present. Likely, viral upper respiratory infection vs sinus infection vs COVID/Flu. Lower suspicion for ACS, angina, PE, UGIB, pancreatitis, gastroenteritis, PUD, or pneumonia. Plan: labs, x-ray, EKG, COVID/Flu, supportive care workup was unremarkable. Patient is stable for discharge home with supportive care for likely viral illness. Differential Diagnosis Differential Diagnoses: The differential diagnosis associated with the presentation includes viral syndrome, ACS, angina, PE, UGIB, pancreatitis, gastroenteritis, PUD, or pneumonia Admission/Observation Consideration of admission/observation: Escalation of care including admissi on/observation considered 57-year-old female complaining of chest pain considered observation Lab Data MDM Lab Attestation statement: I reviewed the patient's lab results. No leukocytosis. Troponin is negative. 06/28/23 09:55 06/28/23 09:55 Labs: Lab Results 06/28/23 06/28/23 06/28/23 Range/Units 09:55 09:55 09:55 WBC 5.8 (4.8-10.8) X10*3/uL RBC 4.51 (4.20-5.50) X10*6/uL Hgb 13.3 (12.0-16.0) g/dl Hct 40.1 (37.0-47.0) % MCV 88.9 (80.0-98.0) fL MCH 29.5 (27.0-33.0) pg MCHC 33.2 (31.0-35.0) g/dl RDW 13.0 (11.0-16.0) % Plt Count 278 (160-400) X10*3/uL MPV 11.1 (9.4-12.3) fL Immature Gran % (Auto) 0.2 (0.0-0.4) % Neut % (Auto) 62.6 (45-73) % Lymph % (Auto) 23.7 (20-40) % [place] % (Auto) 9.2 (2-11) % Eos % (Auto) 3.8 (0-4) % Baso % (Auto) 0.5 (0-2) % Lymph # (Auto) 1.4 (1.2-4.9) X10*3/uL [place] # (Auto) 0.5 (0.1-1.2) X10*3/uL Eos # (Auto) 0.2 (0.0-0.4) X10*3/uL Baso # (Auto) 0.0 (0.0-0.2) X10*3/uL Abs Immat Gran (auto) 0.01 (0.00-0.03) X10*3/uL Absolute Neuts (auto) 3.6 (2.0-8.3) x10*3/uL Absolute Nucleated RBC 0.000 (0.0-0.012) X10*3/uL Nucleated RBC % (auto) 0.0 (0.0-0.2) /100WBC Sodium 143 (135-145) mmol/L Potassium 4.3 (3.3-5.1) mmol/L Chloride 110 H (96-108) mmol/L Carbon Dioxide 27 (22-29) mmol/L Anion Gap 10 L (12-20) BUN 10 (9-16) mg/dL Creatinine 0.72 (0.5-1.4) mg/dL Estim Creat Clear Calc 110.7 Estimated GFR > 60 Random Glucose 90 (60-115) mg/dL Calcium 10.1 (8.4-10.2) mg/dL Magnesium 2.0 (1.6-2.6) mg/dL Total Bilirubin 0.4 (0.0-1.0) mg/dL Direct Bilirubin 0.1 (0.0-0.5) mg/dL AST 43 H (5-31) U/L ALT 49 H (0-31) U/L Alkaline Phosphatase 99 (39-117) U/L Troponin I High Sens 3.4 (<3.5-17.0) ng/L Total Protein 7.2 (6.5-8.0) g/dL Albumin 4.0 (3.5-5.0) g/dL Lipase 18 (8-78) U/L Urine Color Urine Appearance Urine pH (5.0-9.0) Ur Specific [place] (1.005-1.025) Urine Protein (Neg-Trace) mg/dL Urine Glucose (UA) (Negative) mg/dL Urine Ketones (Negative) mg/dL Urine Blood (Negative) Urine Nitrite (Negative) Ur Leukocyte Esterase (Negative) COVID-19 (JACOBO) (Negative) COVID-19 Clin Com Influenza Type A (GOGO) (Negative) Influenza Type B (GOGO) (Negative) Influenza A & B Note 06/28/23 06/28/23 06/28/23 Range/Units 09:55 09:55 09:55 WBC (4.8-10.8) X10*3/uL RBC (4.20-5.50) X10*6/uL Hgb (12.0-16.0) g/dl Hct (37.0-47.0) % MCV (80.0-98.0) fL MCH (27.0-33.0) pg MCHC (31.0-35.0) g/dl RDW (11.0-16.0) % Plt Count (160-400) X10*3/uL MPV (9.4-12.3) fL Immature Gran % (Auto) (0.0-0.4) % Neut % (Auto) (45-73) % Lymph % (Auto) (20-40) % [place] % (Auto) (2-11) % Eos % (Auto) (0-4) % Baso % (Auto) (0-2) % Lymph # (Auto) (1.2-4.9) X10*3/uL [place] # (Auto) (0.1-1.2) X10*3/uL Eos # (Auto) (0.0-0.4) X10*3/uL Baso # (Auto) (0.0-0.2) X10*3/uL Abs Immat Gran (auto) (0.00-0.03) X10*3/uL Absolute Neuts (auto) (2.0-8.3) x10*3/uL Absolute Nucleated RBC (0.0-0.012) X10*3/uL Nucleated RBC % (auto) (0.0-0.2) /100WBC Sodium (135-145) mmol/L Potassium (3.3-5.1) mmol/L Chloride (96-108) mmol/L Carbon Dioxide (22-29) mmol/L Anion Gap (12-20) BUN (9-16) mg/dL Creatinine (0.5-1.4) mg/dL Estim Creat Clear Calc Estimated GFR Random Glucose (60-115) mg/dL Calcium (8.4-10.2) mg/dL Magnesium (1.6-2.6) mg/dL Total Bilirubin (0.0-1.0) mg/dL Direct Bilirubin (0.0-0.5) mg/dL AST (5-31) U/L ALT (0-31) U/L Alkaline Phosphatase (39-117) U/L Troponin I High Sens (<3.5-17.0) ng/L Total Protein (6.5-8.0) g/dL Albumin (3.5-5.0) g/dL Lipase (8-78) U/L Urine Color Yellow Urine Appearance Clear Urine pH 7.5 (5.0-9.0) Ur Specific [place] <= 1.005 (1.005-1.025) Urine Protein Negative (Neg-Trace) mg/dL Urine Glucose (UA) Negative (Negative) mg/dL Urine Ketones Negative (Negative) mg/dL Urine Blood Negative (Negative) Urine Nitrite Negative (Negative) Ur Leukocyte Esterase Negative (Negative) COVID-19 (JACOBO) Negative (Negative) COVID-19 Clin Com See Note Influenza Type A (GOGO) Negative (Negative) Influenza Type B (GOGO) Negative (Negative) Influenza A & B Note See Note Independent Interpretation I performed an independent interpretation of an: EKG and Plain X-Ray Interpretation: Chest x-ray reviewed, no focal infiltrate or effusion. Agree with radiologist read EKG with normal sinus rhythm, ventricular rate 81 beats per minute, normal GA interval, normal QTC, no change from prior, no ST segment elevations or depressions Radiology Impression Discussion of test interpretation with radiology: I have reviewed the radiologist's reading. Radiologist Impression: EXAMINATION: XR CHEST CLINICAL INFORMATION: Chest wall pain, cough, shortness of breath COMPARISON: 06/02/2022 TECHNIQUE: 2 views of the chest were obtained. FINDINGS: No significant abnormality is noted involving the heart, lungs, mediastinum, bony thorax or soft tissues. XR/XR chest 2V IMPRESSION: Unremarkable examination with no interval change. Independent Historian Clinical information obtained from an independent historian. History obtained from or confirmed by: Spouse External Record Review External record reviewed: Office record, Outpatient record, Prior outpatient labs and Prior outpatient radiology Prescription Management I considered prescription management with: Pain Medication and Antibiotic Chronic Conditions Patient?s care impacted by: Other ( Sjogren's syndrome) Critical Care Time Critical Care Time Critical Care Time: No Discharge Plan Discharge Clinical Impression: Acute viral syndrome, Antibiotic-induced yeast infection Patient Disposition: Home, Self-Care Instructions: Yeast Infection (ED), Viral Syndrome (ED) Additional Instructions: You were seen in the ED today for complaints of cough, chest tightness, headache , and burning with urination. As we discussed your labs, imaging, as well as COVID/Flu were negative. Additionally, like discussed it is recommended you discontinue the antibiotic you have been taking. You may continue taking the Claritin you have along with the cough medicine I have sent over. I also have sent a topical antifungal ointment to help with the yeast infection you are experiencing. It is important to ensure you are drinking fluids. You may also use Tylenol/Ibuprofen for your headache. If your symptoms worsen or don't improve, you have a fever >101, or your chest pain worsens please come back to the emergency department. Prescriptions: New nystatin 100,000 unit/gram ointment 1 appl topical TID Qty: 30 1RF benzonatate 100 mg capsule 100 mg PO TID Qty: 30 0RF ibuprofen 600 mg tablet 600 mg PO Q8H PRN (Reason: fever or pain) Qty: 14 0RF No Action lidocaine 5 % adhesive patch,medicated 1 patch topical DAILY Qty: 15 0RF Rx Instructions: leave on most painful area for up to 12 hrs fluticasone propionate [Flonase Allergy Relief] 50 mcg/actuation spray,suspension 2 spray intranasal DAILY Qty: 16 0RF Rx Instructions: administer into each nostril omeprazole 40 mg capsule,delayed release(DR/EC) 40 mg PO DAILY loratadine 10 mg tablet 10 mg PO DAILY levothyroxine 175 mcg tablet 175 mcg PO DAILY
[2023-06-28 10:03] LABS: MANUAL DIFF FLAG NO
[2023-06-28 10:05] LABS: Basophils Percent Auto 0.5 % (0-2); Eosinophils Absolute Auto 0.2 X10*3/uL (0.0-0.4); Eosinophils Percent Auto 3.8 % (0-4); Hematocrit 40.1 % (37.0-47.0); Hemoglobin 13.3 g/dl (12.0-16.0); Imm Gran Abs Auto 0.01 X10*3/uL (0.00-0.03); Imm Gran Pct Auto 0.2 % (0.0-0.4); Lymphocytes Absolute Auto 1.4 X10*3/uL (1.2-4.9); Lymphocytes Percent Auto 23.7 % (20-40); Mean Corpuscular HGB Conc 33.2 g/dl (31.0-35.0); Mean Corpuscular Hemoglobin 29.5 pg (27.0-33.0); Mean Corpuscular Volume 88.9 fL (80.0-98.0); Mean Platelet Volume 11.1 fL (9.4-12.3); Monocytes Absolute Auto 0.5 X10*3/uL (0.1-1.2); Monocytes Percent Auto 9.2 % (2-11); Neutrophils Absolute Auto 3.6 x10*3/uL (2.0-8.3); Neutrophils Percent Auto 62.6 % (45-73); Platelet Count 278 X10*3/uL (160-400); Red Blood Count 4.51 X10*6/uL (4.20-5.50); White Blood Count 5.8 X10*3/uL (4.8-10.8)
[2023-06-28 10:07] LABS: Appearance Urine Clear; Color Urine Yellow; Glucose Urine UA Negative (Negative); Leukocyte Esterase Urine Negative (Negative); Nitrite Urine Negative (Negative); PH 7.5 (5.0-9.0); Specific Gravity - Urine <= 1.005 (1.005-1.025); Urine Blood Negative (Negative); Urine Ketones Negative (Negative); Urine Protein Negative (Neg-Trace)
[2023-06-28 10:23] LABS: Alanine Aminotransferase 49 U/L (0-31); Alkaline Phosphatase 99 U/L (39-117); Anion Gap 10 (12-20); Aspartate Amino Transferase 43 U/L (5-31); Bilirubin Direct 0.1 mg/dL (0.0-0.5); Bilirubin Total 0.4 mg/dL (0.0-1.0); Blood Urea Nitrogen 10 mg/dL (9-16); Calcium 10.1 mg/dL (8.4-10.2); Carbon Dioxide 27 mmol/L (22-29); Chloride 110 mmol/L (96-108); Creatinine Clr Calc Pharmacy 110.7; Estimated Glomerular Filt Rate > 60; Glucose Random 90 mg/dL (60-115); Lipase 18 U/L (8-78); Potassium 4.3 mmol/L (3.3-5.1); Sodium 143 mmol/L (135-145); Total Protein 7.2 g/dL (6.5-8.0)
[2023-06-28 10:30] LABS: Troponin-I High Sensitivity 3.4 ng/L (<3.5-17.0)
[2023-06-28 10:42] LABS: COVID-19 Test Negative (Negative); IDNOW Serial# 9DB6401D
[2023-06-28 10:43] LABS: IDNOW Serial# 08D9AD1C; Influenza A Negative (Negative); Influenza B2 Negative (Negative)
== END 2023-06-28 12:02 | disposition home or self-care (01) ==
PROVIDERS: Physician Assistant; Emergency Provider Emergency Medicine
DX: R07.89 Other chest pain (principal); R05.9 Cough, unspecified; R51.9 Headache, unspecified; Z20.822 Contact with and (suspected) exposure to COVID-19; Z20.828 Contact with and (suspected) exposure to other viral communicable diseases; Z79.899 Other long term (current) drug therapy
CPT/HCPCS: 71046; 80048; 80076; 81003; 83690; 83735; 84484; 85025; 87502; 87635; 93005; 99283

== ENCOUNTER 2024-06-11 07:20 | Emergency (ER) | payer OTHER, SELFPAY ==
[2024-06-11 07:25] VITALS: BP 114/84; PULSE 90; RESP 16; TEMP 37; O2SAT 94; BMI 36.0
--- NOTE | 2024-06-11 07:45 | ED_ITS ---
HPI - General Adult General Chief complaint: Upper Respiratory Symptoms Stated complaint: Fever, headache, sore throat Time Seen by Provider: 06/11/24 07:35 Source: patient and RN notes reviewed Mode of arrival: ambulatory Limitations: no limitations History of Present Illness ED Provider: Eloise Stevenson PA-C HPI narrative: This is a 58-year-old female, with a history of hypothyroidism, who presents emergency department with complaints of headache, sore throat, body aches, and subjective fevers since yesterday. Patient states that she took 1 tablet of a bidm-[id number]-[id number] pain reliever which provided her with minimal relief. She denies any chills, congestion, ear pain, chest pain, shortness of breath, cough, abdominal pain, nausea, vomiting or diarrhea. No sick contacts. No other complaints or concerns at this time. MD complaint: Sore throat, headache, body aches Onset (ago): day(s) Radiation: non-radiation Quality: aching Pain Consistency: constant Relieving factors: none Exacerbating factors: none Associated symptoms: fever/chills Treatments prior to arrival: none Related Data Home Medications ?Medication ?Instructions ?Recorded ?Confirmed levothyroxine 175 mcg tablet 175 mcg PO DAILY 09/29/20 05/05/21 loratadine 10 mg tablet 10 mg PO DAILY 06/28/23 omeprazole 40 mg capsule,delayed 40 mg PO DAILY 06/28/23 release Previous Rx's ?Medication ?Instructions ?Recorded lidocaine 5 % topical patch 1 patch topical DAILY Back pain 11/06/21 #15 ea fluticasone propionate 50 2 spray intranasal DAILY #16 grams 06/02/22 mcg/actuation nasal spray,suspension (Flonase Allergy Relief) benzonatate 100 mg capsule 100 mg PO TID #30 caps 06/28/23 ibuprofen 600 mg tablet 600 mg PO Q8H PRN fever or pain 06/28/23 #14 tabs nystatin 100,000 unit/gram topical 1 appl topical TID #30 grams 06/28/23 ointment acetaminophen 500 mg tablet 1,000 mg (2 x 500 mg) PO Q8H PRN 06/11/24 (Tylenol Extra Strength) fever or pain #30 tabs amoxicillin 500 mg tablet 500 mg PO BID 10 days #20 tabs 06/11/24 ibuprofen 600 mg tablet 600 mg PO Q6H PRN pain #30 tabs 06/11/24 Allergies Allergy/AdvReac Type Severity Reaction Status Date / Time No Known Allergies Allergy Verified 06/11/24 07:27 Review of Systems Review of Systems: Yes all other systems are reviewed and are negative Constitutional: Constitutional: Reports as per [facility] Past Medical History Attestation statement: The following information was validated with the patient. Medical History Primary osteoarthritis of knees, bilateral JERRI positive Sjogrens syndrome Surgical History Hx of tonsillectomy Hx of cholecystectomy Hx of tubal ligation Hx of hysterectomy Family History Family History Mother Osteoarthritis Brother HTN (hypertension) Father Sepsis Social History Social History Alcohol intake: never Patient Tobacco Use Status: Never used Tobacco e-Cigarette/Vaping Use: Never Used Advance Directives: No Advance Directives Information Provided: Yes Physical Exam ED Vital Signs: Vital Signs - 24 hr 06/11/24 07:25 Temperature 98.6 F Pulse Rate 90 Respiratory Rate 16 Blood Pressure 114/84 Pulse Oximetry 94 Oxygen Delivery Method Room Air BMI result Body Mass Index 36.0 Const General: cooperative, comfortable and no acute distress Orientation/consciousness: patient oriented x3 Limitations: no limitations HENMT Other: Posterior oropharynx is erythematous, no tonsillar hypertrophy or exudates. Uvula is midline. Handling secretions well without difficulty. no trismus, drooling, or dysphonia Head: Yes normal to inspection, Yes normocephalic and Yes atraumatic Ears: hearing grossly normal bilaterally and TM's normal bilaterally General nose exam: Normal external nose present Face and sinus: Yes normal facial exam Mouth: Normal oral and palatal mucosa present, oropharynx normal and moist mucous membranes Throat: Yes posterior oropharynx normal Eyes General: appearance normal, both eyes and all related structures Eyelids: Yes eyelids normal Conjunctivae: conjunctivae normal Sclerae: sclerae normal Pupils: Equal, round and reactive pupils present EOM: EOMs intact bilaterally Neck Neck: Yes normal visual inspection, Yes full ROM and Yes no lymphadenopathy Lymphatic: no lymphadenopathy noted Chest Chest palpation & inspection: normal inspection of the chest Resp Effort & Inspection: normal respiratory effort and able to speak in complete sentences Auscultation: clear to auscultation bilaterally, no crackles, no rales, no rhonchi and no wheezes Cardio Rate: regular rate Rhythm: regular rhythm Heart sounds: S1 normal heart sound present and S2 normal heart sound present GI Inspection: Yes normal to inspection Skin General skin exam: no rashes or lesions noted Trauma: no lacerations or abrasions Wounds: no wounds Neuro General: patient oriented x3 and moves all extremities Cranial nerves: Yes Equal, round and reactive pupils present Extrem General: Yes normal to inspection Right upper extremity: normal to inspection Left upper extremity: normal to inspection Right lower extremity: normal to inspection Left lower extremity: normal to inspection Course Reevaluation(s) Reevaluation #1: Patient tested positive for strep throat, discussed with patient. Will treat with amoxicillin. Discussed strict return precautions, she understands and agrees with plan. Patient stable for discharge. Time: 09:17 Medications Administered Discontinued Medications Generic Name Dose Route Start Last Admin Trade Name Freq PRN Reason Stop Dose Admin Acetaminophen 975 mg 06/11/24 07:45 06/11/24 07:58 Acetaminophen 325 Mg Tablet PO 06/11/24 07:46 975 mg ONCE ONE Administration Medical Decision Making Medical Decision Making MDM Narrative: This is a 58-year-old female who presents emergency department with complaints of sore throat body aches, subjective fevers and chills since yesterday. On arrival, vital signs within normal limits. Physical exam with mildly erythematous posterior oropharynx differential diagnoses include strep pharyngitis, viral URI, COVID, flu. Plan: Viral swabs, strep swab, Tylenol 1 g p.o. Differential Diagnosis Differential Diagnoses: The differential diagnosis associated with the presentation includes See above Lab Data Labs: Lab Results 06/11/24 Range/Units 07:34 Influenza Type A (PCR) NEGATIVE (Negative) Influenza Type B (PCR) NEGATIVE (Negative) RSV RNA Qual (PCR) NEGATIVE (Negative) SARS-CoV-2 RNA (RT-PCR) NEGATIVE (Negative) S. pyogenes GrpA GOGO Positive A (Negative) Discharge Plan Discharge Clinical Impression: Strep pharyngitis Patient Disposition: Home, Self-Care Instructions: Strep Throat (ED) Additional Instructions: You were seen in the emergency department due to a sore throat. You tested positive for strep throat. This is a bacterial infection that requires antibiotics. Please take full course of antibiotics even if your symptoms improve. Drink plenty of fluids get plenty of rest. Alternate between ibuprofen and Tylenol as needed for pain and fevers Saltwater gargles, hot tea with honey, popsicles can also help with your sore throat. If any new or worsening symptoms occur including but not limited to inability to swallow, fevers not responding to ibuprofen and or Tylenol, please return for re-evaluation. Prescriptions: New amoxicillin 500 mg tablet 500 mg PO BID 10 Days Qty: 20 0RF ibuprofen 600 mg tablet 600 mg PO Q6H PRN (Reason: pain) Qty: 30 0RF acetaminophen [Tylenol Extra Strength] 500 mg tablet 1,000 mg PO Q8H PRN (Reason: fever or pain) Qty: 30 0RF No Action lidocaine 5 % adhesive patch,medicated 1 patch topical DAILY Qty: 15 0RF Rx Instructions: leave on most painful area for up to 12 hrs fluticasone propionate [Flonase Allergy Relief] 50 mcg/actuation spray,suspension 2 spray intranasal DAILY Qty: 16 0RF Rx Instructions: administer into each nostril omeprazole 40 mg capsule,delayed release(DR/EC) 40 mg PO DAILY loratadine 10 mg tablet 10 mg PO DAILY nystatin 100,000 unit/gram ointment 1 appl topical TID Qty: 30 1RF benzonatate 100 mg capsule 100 mg PO TID Qty: 30 0RF ibuprofen 600 mg tablet 600 mg PO Q8H PRN (Reason: fever or pain) Qty: 14 0RF levothyroxine 175 mcg tablet 175 mcg PO DAILY Print Language: [place] Zealander
[2024-06-11 07:54] LABS: IDNOW Serial# 08D9AD1C; Strep A Nucleic Acid Positive (Negative)
[2024-06-11] MEDS: Acetaminophen 325 MG TABLET 975 MG PO (07:58)
[2024-06-11 08:20] LABS: Influenza A PCR NEGATIVE (Negative); Influenza B PCR NEGATIVE (Negative); Resp Syncy Virus RNA Qual PCR NEGATIVE (Negative); SARS COV2 PCR INHOUSE NEGATIVE (Negative)
[2024-06-11 09:18] VITALS: BP 118/82; PULSE 86; RESP 18; TEMP 36.9; O2SAT 95
== END 2024-06-11 09:18 | disposition home or self-care (01) ==
PROVIDERS: Emergency Provider Emergency Medicine; PCP Internal Medicine
DX: J02.0 Streptococcal pharyngitis (principal); R51.9 Headache, unspecified; R50.9 Fever, unspecified; E03.9 Hypothyroidism, unspecified; Z03.818 Encounter for observation for suspected exposure to other biological agents ruled out
CPT/HCPCS: 0241U; 87651; 99283

== ENCOUNTER 2025-02-22 10:41 | Emergency (ER) | payer OTHER, SELFPAY ==
--- NOTE | ~2025-02-22 | XR_ITS ---
CLINICAL HISTORY: weakness feeling unwell ?PNA 2 view chest x-ray Comparison: None Findings: The lungs are clear. Normal size heart. No acute fracture. IMPRESSION: 1. No acute findings. This document has been electronically signed by: Jesse Reyna MD on 02/22/2025 13:28:33
[2025-02-22 10:53] VITALS: BP 134/83; BP 140/84; PULSE 74; PULSE 86; RESP 16; TEMP 37.4; O2SAT 97; O2SAT 99; BMI 38.1
--- OUTSIDE RECORDS SUMMARY | 2025-02-22 11:06 | XMS_ITS | Encounter Summary ---
Author Organization [facility] Address [address] [place] [address] Care Team Providers Care Rib Matcher And Fitter Name Role Phone Gus Deleon MD Primary Care Provider [phone] Reason for Visit * Reason Onset Date Comments lab order 02/14/2025 Encounter Details Date Type Department Care Team ([facility] Contact Info) Description 02/14/2025 Telephone Adult [facility] [address] [place] [address] Gus Deleon MD [address] [place] [address] lab order Social History Tobacco Use Types Packs/Day Years Used Date Smoking Tobacco: Former Cigarettes Q uit: 06/15/2009 Smokeless Tobacco: Never Alcohol Use Standard Drinks/Week Comments No 0 (1 standard drink = 0.6 oz pur e alcohol) Comments Unknown Sex and Gender Information Value Date Recorded Sex Assigned at Female 05/02/2023 10:37 PM EDT Legal Sex Female 5:41 PM EST Gender Identity Female 05/02/2023 10:37 PM EDT Sexual Orientation Straight 05/02/2023 10 :37 PM EDT documented as of this encounter Progress Notes * Odalys Slater - 02/14/2025 2:48 PM EDT The patient wants to be sure the lab orders from 10/2024 are still good. She's going to the lab today. documented in this encounter Plan of Treatment Upcoming Encounters Date Type Department Care Team (Late st Contact Info) Description 02/26/2025 2:30 PM EDT Treatment [facility] [address] [phone] Juan Luis Wilson, PT 03/03/2025 11:30 AM EDT Treatment [address] [phone] Charly Daly, BIAS MACHINE OPERATOR HELPER 03/05/2025 11:00 AM EDT Treatment [address] [phone] Isaias Rodriguez, BIAS MACHINE OPERATOR HELPER 03/11/2025 1:30 PM EDT Treatment [facility] [address] [phone] Isaias Rodriguez, BIAS MACHINE OPERATOR HELPER 03/12/2025 3:30 PM EDT Consult Vascular Surgery [facility] 300 [facility] [address] [place] [address] Lucy Julio PA 300 [facility] [address] [place] [address] 03/13/2025 1:30 PM EDT Treatment [facility] [address] [phone] Charly Daly, BIAS MACHINE OPERATOR HELPER 03/17/2025 1:30 PM EDT Treatment [facility] [address] [phone] Juan Luis Wilson, PT 03/19/2025 1:[address] [facility] [address] [place] [phone] Sammy Miranda MD [address] [address] 03/25/2025 4:10 PM EDT Appointment Radiology Department [address] [phone] 04/02/2025 3:00 PM EDT Office Visit [facility] [place] [address] [place] [phone] Yudi Wiggins PA [address] [place] [address] [place] [address] 06/26/2025 11:30 AM EDT Office Visit Orthopedic Surgery - [place] [address] [place] [phone] Alexa Gonzalez MD [address] [place] [address] documented as of this encounter Goals Goal Patient Goal Type Associated Problems Recent Progress Patient-Stated? Author PT LTGs General No Juan Luis Wilson, PT Note: Pt will report no B knee pain while grocery shopping Pt will ascend/descend 12 steps without B knee pain Pt will be independent with HEP Pt will complete 10 reps of sit to stand without B knee pain documented as of this encounter Visit Diagnoses Not on filedocumented in this encounter Care Teams Rib Matcher And Fitter Relationship Specialty Start Date End Date Gus Deleon MD [address] [place] [address] PCP - General Internal Medicine 04/19/22 documented as of this encounter
--- OUTSIDE RECORDS SUMMARY | 2025-02-22 11:06 | XMS_ITS | Encounter Summary ---
Author Organization [facility] Address [address] [place] [address] Care Team Providers Care Project Controls Specialist Name Role Phone Gus Deleon MD Primary Care Provider [phone] Reason for Visit * Reason Onset Date Comments Sore Throat 02/20/2025 Encounter Details Date Type Department Care Team ([facility] st Contact Info) Description 02/20/2025 Telephone Adult Medicine [facility] [address] [place] [phone] Gus Deleon MD [address] [place] [address] Sore Throat Social History Tobacco Use Types Packs/Day Years [...] as of this encounter Progress Notes * Mojgan Doe RN - 02/20/2025 10:02 AM EDT Pt has had a sore throat since Monday she was seen at [facility] and has taken denies any chest wall pain with deep breath / cough, denies SOB, able to speak in full sentences and has no audible wheezing or stridor , using amoxicillin as directed with some relief, Denies any cough , denies fever (has not taken temp) able to take PO with Difficulty due to pain with swallowing is able to take po fluids and swallow saliva, denies trismus , has headache and nausea denies V/D, has no swelling, C/O pain in right ear Advised home care following the Sore throat Protocol. RN reinforced telephone consultation and advice. Reviewed with the patient the signs and symptoms to watch for that would require immediate attention. If symptoms change, worsen or increase in intensity, to call back immediately. Appointment not needed , will call as she finishes antibiotics * Kaylee Colbert - 02/20/2025 9:25 AM EDT Patient saw Urgent care in [place] and was DX with Strep throat, Negative for covid. Patient feels she is getting worse, has fever, headaches and upsett stomach. They did prescribe her anti-biotics. documented in this encounter Plan of Treatment Upcoming Encounters Date Type Department Care Team (Late st Contact Info) Description 02/26/2025 2:30 PM EDT Treatment [address] [phone] Juan Luis Wilson, PT 03/03/2025 11:30 AM EDT Treatment [address] [phone] Charly Daly, NEWSPAPER CLIPPER 03/05/2025 11:00 AM EDT Treatment [address] [phone] Isaias Rodriguez, NEWSPAPER CLIPPER 03/11/2025 1:30 PM EDT Treatment [address] [phone] Isaias Rodriguez, NEWSPAPER CLIPPER 03/12/2025 3:30 PM EDT Consult Vascular Surgery - [place] [address] [place] [address] Lucy Julio PA [address] [facility] [address] [place] [address] 03/13/2025 1:30 PM EDT Treatment [facility] 175 [facility] [address] [place] [phone] Charly Daly, NEWSPAPER CLIPPER 03/17/2025 1:30 PM EDT Treatment [facility] 175 [facility] 350 [place] [phone] Juan Luis Wilson, PT 03/19/2025 1:00 PM EDT Appointment [facility] [address] [place] [phone] Sammy Miranda MD 175 [facility] 200 [place] [address] 03/25/2025 4:10 PM EDT Appointment Radiology Department [address] [phone] 04/02/2025 3:00 PM EDT Office Visit [facility] 175 [facility] 150 [place] [phone] Yudi Wiggins PA [address] [facility] 150 [place] [address] 06/26/2025 11:30 AM EDT Office Visit Orthopedic Surgery [facility] 160 [address] [facility] 160 [place] [phone] Alexa Gonzalez MD 175 [facility] 160 [place] [address] documented as of this encounter Goals Goal [...] on filedocumented in this encounter Care Teams Project Controls Specialist Relationship Specialty Start Date End Date Gus Deleon MD [address] [place] [address] PCP - General Internal Medicine 04/19/22 documented as of this encounter
--- NOTE | 2025-02-22 11:48 | ED_ITS ---
HPI - General Adult General Chief complaint: General Medical Stated complaint: LEON,DIZZY X2D PER EMS Time Seen by Provider: 02/22/25 10:59 Source: patient and EMS Mode of arrival: EMS Limitations: no limitations History of Present Illness ED Provider: NASRA CHACON PA-C HPI narrative: 59-year-old female with past medical history significant for Sjogren's, hypothyroidism presents to the ED today via EMS for evaluation of feeling generally unwell x1 week. She states she was seen at urgent care approximately 1 week ago for a sore throat. She tested positive for strep pharyngitis and was discharged home on antibiotics. She has been taking these as prescribed. She reports symptoms were improving until approximately 4 days ago. Reports headache, photophobia, nausea and vomiting, and weakness. Reports associated nonradiating epigastric abdominal pain. She does report history of migraine headaches. She has had thorough workup with her PCP including EEG (possibly MRI) in November of this year with reported negative workup. She states she typically just takes Tylenol/Motrin for her headaches. She states that this feels similar to her previous headaches however it was not currently responding to Tylenol/Motrin. She did not take any of these medications today. No headache red flags. Pertinent surgical history includes cholecystectomy and hysterectomy. Denies fever, chills, sore throat, chest pain, shortness of breath, dizziness, vision changes. Related Data Home Medications ?Medication ?Instructions ?Recorded ?Confirmed levothyroxine 175 mcg tablet 175 mcg PO DAILY 09/29/20 05/05/21 loratadine 10 mg tablet 10 mg PO DAILY 06/28/23 omeprazole 40 mg capsule,delayed 40 mg PO DAILY 06/28/23 release Previous Rx's ?Medication ?Instructions ?Recorded lidocaine 5 % topical patch 1 patch topical DAILY Back pain 11/06/21 #15 ea fluticasone propionate 50 2 spray intranasal DAILY #16 grams 06/02/22 mcg/actuation nasal spray,suspension (Flonase Allergy Relief) benzonatate 100 mg capsule 100 mg PO TID #30 caps 06/28/23 ibuprofen 600 mg tablet 600 mg PO Q8H PRN fever or pain 06/28/23 #14 tabs nystatin 100,000 unit/gram topical 1 appl topical TID #30 grams 06/28/23 ointment acetaminophen 500 mg tablet 1,000 mg (2 x 500 mg) PO Q8H PRN 06/11/24 (Tylenol Extra Strength) fever or pain #30 tabs amoxicillin 500 mg tablet 500 mg PO BID 10 days #20 tabs 06/11/24 ibuprofen 600 mg tablet 600 mg PO Q6H PRN pain #30 tabs 06/11/24 [id number]-[id number]-acccywni 250 1 tab PO Q6H PRN headache #7 tabs 02/22/25 mg-250 mg-65 mg tablet (Excedrin Migraine) diphenhydramine HCl 25 mg tablet 25 mg PO Q6-8H PRN nausea and 02/22/25 (Benadryl Allergy) vomiting #7 tabs metoclopramide HCl 10 mg tablet 10 mg PO Q6H PRN nausea and 02/22/25 (Reglan) vomiting #7 tabs Allergies Allergy/AdvReac Type Severity Reaction Status Date / Time No Known Allergies Allergy Verified 02/22/25 10:55 Review of Systems 2 Review of Systems: Yes all other systems are reviewed and are negative PMFSH Past Medical History Attestation statement: The following information was validated with the patient. Source: old records reviewed and nursing notes reviewed Medical History Primary osteoarthritis of knees, bilateral JERRI positive Sjogrens syndrome Surgical History Hx of tonsillectomy Hx of cholecystectomy Hx of tubal ligation Hx of hysterectomy Family History Family History Mother Osteoarthritis Brother HTN (hypertension) Father Sepsis Social History Social History Alcohol intake: never Patient Tobacco Use Status: Never used Tobacco e-Cigarette/Vaping Use: Never Used Physical Exam ED Vital Signs: Vital Signs - 24 hr 02/22/25 10:53 02/22/25 12:14 02/22/25 12:15 Temperature 99.4 F Pulse Rate 86 71 67 Respiratory Rate 16 Blood Pressure 134/83 116/66 119/70 Pulse Oximetry 99 Oxygen Delivery Method Room Air 02/22/25 12:15 02/22/25 14:20 Temperature 98.6 F Pulse Rate 84 77 Respiratory Rate 18 Blood Pressure 119/81 131/76 Pulse Oximetry 97 Oxygen Delivery Method Room Air BMI result Body Mass Index 38.1 Vital signs stable General: appears weak Skin: Warm, dry, intact. No rashes or lesions. Head: Normocephalic, atraumatic. EENT: Hearing is intact b/l. Conjunctiva clear. PERRLA. EOM intact. Moist mucous membranes.? Cardiac: Chest wall symmetric. RRR Lungs: Normal respiratory effort without accessory muscle use. CTA bilaterally Abdomen: Soft, non-tender, non-distended. No rebound tenderness or guarding. Positive BS x4. Back: No midline spinous or paraspinal tenderness. No step off deformity. Ext: Upper and lower extremities atraumatic, without tenderness, deformity, swelling or erythema Neuro: AOx3. Normal speech. NIH 0. Strength 4/5 intact throughout. Ambulating with slow but steady gait. Normal odfnjm-[id number]-bhxp, sozf-bm-hfwf. Course Course Course Narrative: CBC without leukocytosis or left shift. No anemia. H&H stable. Chemistry without acute electrolyte abnormality requiring intervention. No REINA. Liver function around baseline. TSH elevated to 5.24, normal T4. Urine without infection. Negative COVID, flu, RSV. cxr without infiltrate or consolidation to suggest pneumonia. orthostatic vital signs negative. > discussed all workup results with patient. She states that she followed up with her advanced research programs director last week. Her TSH was noted to be elevated however her medications were not adjusted at that time. She states this is a chronic finding for her. > on re-evaluation, she reports complete resolution of headache after receiving migraine cocktail + IVF. Endorses 0/10 pain at present. States she feels much better. She was tolerating a peanut butter and jelly sandwich. No further episodes of vomiting. used shared decision making to determine disposition. Patient feels stable for discharge home at this time. I advised her to follow up with her PCP/ advanced research programs director. Patient has remained stable throughout ED visit today. Discussed worrisome signs and symptoms and when to return to the ED. All questions answered at this time. Patient is agreeable with disposition and stable for discharge. Medications Administered Discontinued Medications Generic Name Dose Route Start Last Admin Trade Name Freq PRN Reason Stop Dose Admin Diphenhydramine HCl 25 mg 02/22/25 11:45 02/22/25 12:25 Diphenhydramine Hcl 50 Mg/Ml Vial IVPUSH 02/22/25 11:46 25 mg ONCE ONE Administration Sodium Chloride 1,000 mls @ 999 mls/hr 02/22/25 11:45 02/22/25 13:50 Ns IV 02/22/25 12:45 Infused .Q1H1M NOAH Infusion Ketorolac Tromethamine 15 mg 02/22/25 11:45 02/22/25 12:25 Ketorolac Tromethamine 15 Mg/Ml Vial IVPUSH 02/22/25 11:46 15 mg ONCE ONE Administration Metoclopramide HCl 10 mg 02/22/25 11:45 02/22/25 12:25 Metoclopramide Hcl 10 Mg/2 Ml Vial IVPUSH 02/22/25 11:46 10 mg ONCE ONE Administration Medical Decision Making Medical Decision Making [facility] Narrative: 59-year-old female with past medical history significant for Sjogren's, hypothyroidism presents to the ED today via EMS for evaluation of feeling generally unwell x1 week. Differential diagnosis includes anemia, electrolyte abnormality, dehydration, orthostatic hypotension, tension headache versus migraine, viral syndrome, pneumonia, gastroenteritis, gastritis. Lower suspicion for pancreatitis. Unlikely cholecystitis, cholangitis, biliary colic. No headache red flags. No focal neurologic findings. Presentation not consistent with acute intracranial bleed including SAH. Presentation not consistent with acute [employer] infection including meningitis or brain abscess. Temporal arteritis unlikely, as is acute angle closure glaucoma given history and physical findings. Plan for basic labs swabs, chest x-ray, orthostatic vital signs, migraine cocktail, IV fluids and re-evaluation Differential Diagnosis Differential Diagnoses: The differential diagnosis associated with the presentation includes As above Admission/Observation not indicated Lab Data [facility] Lab Attestation statement: I reviewed the patient's lab results. As above 02/22/25 12:09 02/22/25 12:09 Labs: Lab Results 02/22/25 Range/Units 12:09 WBC 6.8 (4.8-10.8) X10*3/uL RBC 4.68 (4.20-5.50) X10*6/uL Hgb 14.1 (12.0-16.0) g/dl Hct 41.2 (37.0-47.0) % MCV 88.0 (80.0-98.0) fL MCH 30.1 (27.0-33.0) pg MCHC 34.2 (31.0-35.0) g/dl RDW 13.1 (11.0-16.0) % Plt Count 325 (160-400) X10*3/uL MPV 10.7 (9.4-12.3) fL Immature Gran % (Auto) 0.9 H (0.0-0.4) % Neut % (Auto) 59.2 (45-73) % Lymph % (Auto) 31.2 (20-40) % [place] % (Auto) 7.2 (2-11) % Eos % (Auto) 0.9 (0-4) % Baso % (Auto) 0.6 (0-2) % Lymph # (Auto) 2.1 (1.2-4.9) X10*3/uL [place] # (Auto) 0.5 (0.1-1.2) X10*3/uL Eos # (Auto) 0.1 (0.0-0.4) X10*3/uL Baso # (Auto) 0.0 (0.0-0.2) X10*3/uL Abs Immat Gran (auto) 0.06 H (0.00-0.03) X10*3/uL Absolute Neuts (auto) 4.0 (2.0-8.3) x10*3/uL Absolute Nucleated RBC 0.000 (0.0-0.012) X10*3/uL Nucleated RBC % (auto) 0.0 (0.0-0.2) /100WBC Sodium 143 (135-145) mmol/L Potassium 3.8 (3.3-5.1) mmol/L Chloride 107 (96-108) mmol/L Carbon Dioxide 28 (22-29) mmol/L Anion Gap 12 (12-20) BUN 8 L (9-16) mg/dL Creatinine 0.66 (0.5-1.4) mg/dL Estim Creat Clear Calc 116.4 Estimated GFR > 60 Random Glucose 82 (60-115) mg/dL Calcium 9.9 (8.4-10.2) mg/dL Magnesium 2.0 (1.6-2.6) mg/dL Total Bilirubin 0.3 (0.0-1.0) mg/dL AST 25 (5-31) U/L ALT 70 H (0-31) U/L Alkaline Phosphatase 114 (39-117) U/L Total Protein 7.4 (6.5-8.0) g/dL Albumin 4.0 (3.5-5.0) g/dL Lipase 20 (8-78) U/L TSH 5.24 H (0.32-4.0) uIU/mL Free T4 0.96 (0.71-1.85) ng/dL Urine Color Yellow Urine Appearance Clear Urine pH 8.5 (5.0-9.0) Ur Specific [place] <= 1.005 (1.005-1.025) Urine Protein Negative (Neg-Trace) mg/dL Urine Glucose (UA) Negative (Negative) mg/dL Urine Ketones Negative (Negative) mg/dL Urine Blood Negative (Negative) Urine Nitrite Negative (Negative) Ur Leukocyte Esterase Negative (Negative) Influenza Type A (PCR) NEGATIVE (Negative) Influenza Type B (PCR) NEGATIVE (Negative) RSV RNA Qual (PCR) NEGATIVE (Negative) SARS-CoV-2 RNA (RT-PCR) NEGATIVE (Negative) Independent Interpretation I performed an independent interpretation of an: Plain X-Ray Interpretation: Chest x-ray without infiltrate or consolidation Radiology Impression Discussion of test interpretation with radiology: I have reviewed the radiologist's reading. Radiologist Impression: Procedure(s): XR chest 2V Accession Number(s): [id number] cc: Gus Deleon MD; Nasra Chacon~ CLINICAL HISTORY: weakness feeling unwell ?PNA 2 view chest x-ray Comparison: None Findings: The lungs are clear. Normal size heart. No acute fracture. IMPRESSION: 1. No acute findings. Independent Historian Clinical information obtained from an independent historian. History obtained from or confirmed by: EMS External Record Review External record reviewed: Inpatient record Prescription Management I considered prescription management with: Other (Reglan, Benadryl, Excedrin migraine) Social Determinants Patient?s care significantly limited by Social Determinants of Health including: Other Social Determinant of Health Critical Care Time Critical Care Time Critical Care Time: No Discharge Plan Discharge Clinical Impression: Headache Patient Disposition: Home, Self-Care Instructions: General Headache (ED) Additional Instructions: Your evaluation did not show evidence of medical conditions requiring emergent intervention at this time, and your pain improved with medication in the ED. Sometimes it is difficult to explain the cause of headache but the negative workup today is reassuring. You report improvement in symptoms after receiving migraine medications and IV fluids. I want you to take the following 3 medications together every 6 hours as needed for headache, nausea or vomiting. ? - Reglan 10 mg - Benadryl 50 mg - Excedrin migraine After you take these medications, lie down in a dark quiet room and try to fall asleep. ?These medications will make you sleepy, do not drive or work after taking these medications. Please follow up with your primary care physician within two days. Return to the Emergency Department if you experience worsening or uncontrolled pain, vision changes, recurrent vomiting, difficulty with normal activities, abnormal behavior, difficulty walking, numbness, weakness, or any other concerning symptoms. Prescriptions: New Excedrin Migraine 250-250-65 mg tablet 1 tab PO Q6H PRN (Reason: headache) Qty: 7 0RF metoclopramide HCl [Reglan] 10 mg tablet 10 mg PO Q6H PRN (Reason: nausea and vomiting) Qty: 7 0RF diphenhydramine HCl [Benadryl Allergy] 25 mg tablet 25 mg PO Q6-8H PRN (Reason: nausea and vomiting) Qty: 7 0RF No Action lidocaine 5 % adhesive patch,medicated 1 patch topical DAILY Qty: 15 0RF Rx Instructions: leave on most painful area for up to 12 hrs fluticasone propionate [Flonase Allergy Relief] 50 mcg/actuation spray,suspension 2 spray intranasal DAILY Qty: 16 0RF Rx Instructions: administer into each nostril omeprazole 40 mg capsule,delayed release(DR/EC) 40 mg PO DAILY loratadine 10 mg tablet 10 mg PO DAILY nystatin 100,000 unit/gram ointment 1 appl topical TID Qty: 30 1RF benzonatate 100 mg capsule 100 mg PO TID Qty: 30 0RF ibuprofen 600 mg tablet 600 mg PO Q8H PRN (Reason: fever or pain) Qty: 14 0RF amoxicillin 500 mg tablet 500 mg PO BID 10 Days Qty: 20 0RF ibuprofen 600 mg tablet 600 mg PO Q6H PRN (Reason: pain) Qty: 30 0RF acetaminophen [Tylenol Extra Strength] 500 mg tablet 1,000 mg PO Q8H PRN (Reason: fever or pain) Qty: 30 0RF levothyroxine 175 mcg tablet 175 mcg PO DAILY Referrals: Gus Deleon MD [Primary Care Provider] - Interventions: ED Discharge Assessment Last Done: 02/22/25 14:20 Discharge Date/Time: 02/22/25 14:21 Print Language: Hungarian
[2025-02-22 12:14] VITALS: BP 116/66; PULSE 71
[2025-02-22 12:15] VITALS: BP 119/70; BP 119/81; PULSE 67; PULSE 84
[2025-02-22 12:17] LABS: MANUAL DIFF FLAG NO
[2025-02-22 12:19] LABS: Basophils Percent Auto 0.6 % (0-2); Eosinophils Absolute Auto 0.1 X10*3/uL (0.0-0.4); Eosinophils Percent Auto 0.9 % (0-4); Hematocrit 41.2 % (37.0-47.0); Hemoglobin 14.1 g/dl (12.0-16.0); Imm Gran Abs Auto 0.06 X10*3/uL (0.00-0.03); Imm Gran Pct Auto 0.9 % (0.0-0.4); Lymphocytes Absolute Auto 2.1 X10*3/uL (1.2-4.9); Lymphocytes Percent Auto 31.2 % (20-40); Mean Corpuscular HGB Conc 34.2 g/dl (31.0-35.0); Mean Corpuscular Hemoglobin 30.1 pg (27.0-33.0); Mean Platelet Volume 10.7 fL (9.4-12.3); Monocytes Absolute Auto 0.5 X10*3/uL (0.1-1.2); Monocytes Percent Auto 7.2 % (2-11); Neutrophils Percent Auto 59.2 % (45-73); Platelet Count 325 X10*3/uL (160-400); Red Blood Count 4.68 X10*6/uL (4.20-5.50); Red Cell Distribution Width 13.1 % (11.0-16.0); White Blood Count 6.8 X10*3/uL (4.8-10.8)
[2025-02-22 12:24] LABS: Appearance Urine Clear; Color Urine Yellow; Glucose Urine UA Negative (Negative); Leukocyte Esterase Urine Negative (Negative); Nitrite Urine Negative (Negative); PH 8.5 (5.0-9.0); Specific Gravity - Urine <= 1.005 (1.005-1.025); Urine Blood Negative (Negative); Urine Ketones Negative (Negative); Urine Protein Negative (Neg-Trace)
[2025-02-22] MEDS: diphenhydrAMINE HCL 50 MG/ML VIAL 25 MG IVPUSH (12:25)
[2025-02-22] MEDS: Metoclopramide HCl 10 MG/2 ML VIAL IVPUSH (12:25)
[2025-02-22] MEDS: Ketorolac Tromethamine 15 MG/ML VIAL IVPUSH (12:25)
[2025-02-22] MEDS: 0.9 % Sodium Chloride 1,000 ML 999 ML IV (12:26)
[2025-02-22 12:54] LABS: Alanine Aminotransferase 70 U/L (0-31); Anion Gap 12 (12-20); Aspartate Amino Transferase 25 U/L (5-31); Bilirubin Total 0.3 mg/dL (0.0-1.0); Blood Urea Nitrogen 8 mg/dL (9-16); Calcium 9.9 mg/dL (8.4-10.2); Carbon Dioxide 28 mmol/L (22-29); Chloride 107 mmol/L (96-108); Creatinine Clr Calc Pharmacy 116.4; Estimated Glomerular Filt Rate > 60; Glucose Random 82 mg/dL (60-115); Lipase 20 U/L (8-78); Potassium 3.8 mmol/L (3.3-5.1); Sodium 143 mmol/L (135-145); Total Protein 7.4 g/dL (6.5-8.0)
[2025-02-22 12:58] LABS: TSH reflex Free T4 5.24 uIU/mL (0.32-4.0)
[2025-02-22 12:59] LABS: Influenza A PCR NEGATIVE (Negative); Influenza B PCR NEGATIVE (Negative); Resp Syncy Virus RNA Qual PCR NEGATIVE (Negative); SARS COV2 PCR INHOUSE NEGATIVE (Negative)
[2025-02-22 13:13] LABS: Alkaline Phosphatase 114 U/L (39-117)
[2025-02-22 14:20] VITALS: BP 131/76; PULSE 77; RESP 18; TEMP 37; O2SAT 97
[2025-02-22 14:44] LABS: Free T4 (Free Thyroxine) 0.96 ng/dL (0.71-1.85)
== END 2025-02-22 14:21 | disposition home or self-care (01) ==
PROVIDERS: Physician Assistant Medical; Emergency Provider Emergency Medicine; PCP Internal Medicine
DX: R51.9 Headache, unspecified (principal); J02.9 Acute pharyngitis, unspecified; E03.9 Hypothyroidism, unspecified; Z79.899 Other long term (current) drug therapy; Z03.818 Encounter for observation for suspected exposure to other biological agents ruled out
CPT/HCPCS: 0241U; 36415; 71046; 80053; 81003; 83690; 83735; 84439; 84443; 85025; 96361; 96374; 96375; 99283; 99284; J1200; J1885; J2765

== ENCOUNTER → 2025-02-22 11:45 | Outpatient (BNV) | payer OTHER, SELFPAY | PROVIDERS: Emergency Provider Emergency Medicine; PCP Internal Medicine; Visit Provider Specialist | DX: R53.1 Weakness (principal) | CPT/HCPCS: 71046 ==